=== PATIENT | female | born 1940 | race Asian ===

== ENCOUNTER 2019-02-24 00:50 | Inpatient (IN) | payer MEDICARE, OTHER ==
[~2019-02-24] VITALS: Ht 149.9 cm; Wt 66.3 kg
[2019-02-24] VITALS (9 sets, daily range): BP systolic 122–216; BP diastolic 50–93
--- NOTE | 2019-02-24 01:00 | NUR ---
Patient bib pvt ambulance from [facility] for c/o n/v. A/Ox3. Speech is clear, speaks in complete sentences. No acute neuro deficits. Respiratory even and unlabored with no cough or sob at this time. No cardiovascular distress noted, all pulses palpable denies any cp. Patient in bed at lowest position, sr upx2, call light within reach. Fall precautions implemented per protocol.
[2019-02-24 01:14] LABS: BASOPHILS % (AUTO) 0.4 % (0.0-2.0); EOSINOPHILS # (AUTO) 0.1 K/uL (0.0-0.7); LYMPHOCYTES # (AUTO) 0.9 K/uL (20.0-40.0); MEAN CORPUSCULAR VOLUME 88.5 fL (75.5-95.3); MONOCYTES # (AUTO) 0.8 K/uL (2.0-10.0)
[2019-02-24 01:15] LABS: EOSINOPHILS % (AUTO) 1.5 % (0.0-7.0); HEMATOCRIT 21.9 % (31.2-41.9); LYMPHOCYTES % (AUTO) 10.3 % (20.5-51.5); MEAN CORPUSCULAR HEMOGLOBIN 29.1 uug (24.7-32.8); MEAN CORPUSCULAR HGB CONC 33 g/dL (32.3-35.6); MONOCYTES % (AUTO) 9.3 % (0.0-11.0); NEUTROPHILS # (AUTO) 6.8 K/uL (1.8-8.9); NEUTROPHILS % (AUTO) 78.5 % (38.5-71.5); PLATELET COUNT (AUTO) 467 K/uL (179-408); WHITE BLOOD COUNT (AUTO) 8.7 K/uL (3.8-11.8)
[2019-02-24] MEDS ORDERED: IV NORMAL SALINE 1000 ML BAG IV ONE (01:15)
[2019-02-24] MEDS ORDERED: ONDANSETRON 4 MG/2 ML VIAL IV ONE (01:15)
[2019-02-24] MEDS ORDERED: ONDANSETRON 4 MG/2 ML VIAL ONE (01:18)
[2019-02-24] MEDS ORDERED: HYDR100T27 PO (01:24)
[2019-02-24] MEDS ORDERED: ACET-2154 PO (01:24)
[2019-02-24] MEDS ORDERED: INSU100V7 SQ (01:24)
[2019-02-24] MEDS ORDERED: AMIO200T7 PO (01:24)
[2019-02-24] MEDS ORDERED: VOLTAREN GEL1% (01:24)
[2019-02-24] MEDS ORDERED: DOCU100T10 PO (01:24)
[2019-02-24] MEDS ORDERED: SENN-168 PO (01:24)
[2019-02-24] MEDS ORDERED: MULT1TAB11 PO (01:24)
[2019-02-24] MEDS ORDERED: BENZ1LOZ58 PO (01:24)
[2019-02-24] MEDS ORDERED: BACL10TA PO (01:24)
[2019-02-24] MEDS ORDERED: NA P133E RC (01:24)
[2019-02-24] MEDS ORDERED: ACET1TAB12 PO (01:24)
[2019-02-24] MEDS ORDERED: GUAI100S9 PO (01:24)
[2019-02-24] MEDS ORDERED: ONDA4TAB8 PO (01:24)
[2019-02-24] MEDS ORDERED: FLUO15CR TP (01:24)
[2019-02-24] MEDS ORDERED: NIFE60TA9 PO (01:24)
[2019-02-24] MEDS ORDERED: APIX2.5T PO (01:24)
[2019-02-24] MEDS ORDERED: MAGN400T8 PO (01:24)
[2019-02-24] MEDS ORDERED: ESCI5TAB10 PO (01:24)
[2019-02-24] MEDS ORDERED: INSULIN SLIDING SCALE SQ (01:24)
[2019-02-24] MEDS ORDERED: GUAI-175 PO (01:24)
[2019-02-24] MEDS ORDERED: LIDOCAINE OINT 5% TOP (01:24)
[2019-02-24] MEDS ORDERED: CETI5TAB8 PO (01:24)
[2019-02-24] MEDS ORDERED: ASCO500C18 PO (01:24)
[2019-02-24] MEDS ORDERED: CYAN10009 PO (01:24)
[2019-02-24] MEDS ORDERED: PANT40TA2 PO (01:24)
[2019-02-24] MEDS ORDERED: ISOS30TA PO (01:24)
[2019-02-24] MEDS ORDERED: BISA10SU95 RC (01:24)
[2019-02-24] MEDS ORDERED: RISP1TAB7 PO (01:24)
[2019-02-24 01:32] LABS: ALANINE AMINOTRANSFERASE 16 U/L (14-59); ALKALINE PHOSPHATASE 70 U/L (50-136); ASPARTATE AMINOTRANSFERASE 12 U/L (15-37); BILIRUBIN,DIRECT 0.1 mg/dL (0.0-0.2); BILIRUBIN,TOTAL 0.2 mg/dL (0.2-1.0); CARBON DIOXIDE 19 mmol/L (21-32); CHLORIDE 108 mmol/L (98-107); CREATININE 3.2 mg/dL (0.6-1.3); GLUCOSE 184 mg/dL (74-106); LIPASE 250 U/L (73-393); POTASSIUM 6.1 mmol/L (3.5-5.1); TOTAL PROTEIN, SERUM 6.8 g/dL (6.4-8.2); UREA NITROGEN, BLOOD 61 mg/dL (7-18)
[2019-02-24 01:37] LABS: RED BLOOD CELL COUNT(AUTO) 2.47 MIL/uL (3.63-4.92)
[2019-02-24 01:40] LABS: HEMOGLOBIN 7.2 g/dL (10.9-14.3)
[2019-02-24] MEDS ORDERED: SODIUM POLYSTYRENE SULFONATE 15 G/60 ML LIQUID UDC PO ONE (01:45)
[2019-02-24] MEDS ORDERED: SODIUM POLYSTYRENE SULFONATE 15 G/60 ML LIQUID UDC ONE (01:47)
--- NOTE | 2019-02-24 01:47 | NUR ---
Patient back in room from CT in stable condition.
--- NOTE | 2019-02-24 02:14 | NUR ---
ERMD on the line with Dr. Edward Nick
[2019-02-24] MEDS ORDERED: LEVOFLOXACIN 750 MG/D5W 150 ML PIGGYBACK IV ONE (02:15)
[2019-02-24] MEDS ORDERED: AZITHROMYCIN IV 500 MG in IV DEXTROSE 5% 250 ML IV ONE (02:15)
[2019-02-24] MEDS ORDERED: LEVOFLOXACIN 750MG/D5W 150 ML IV ONE (02:21)
[2019-02-24] MEDS ORDERED: AZITHROMYCIN 500MG/ D5W 250ML IVPB **ER PYXIS ONLY IV ONE (02:22)
[2019-02-24] MEDS ORDERED: ALBUTEROL SULFATE 2.5 MG/3 ML NEBU NEB ONE (03:15)
[2019-02-24] MEDS ORDERED: ALBUTEROL SULFATE 2.5 MG/3 ML NEBU ONE (03:15)
[2019-02-24] MEDS ORDERED: IPRATROPIUM BROMIDE 0.5 MG/2.5 ML NEBU NEB ONE (03:15)
[2019-02-24] MEDS ORDERED: IPRATROPIUM BROMIDE 0.5 MG/2.5 ML NEBU ONE (03:15)
[2019-02-24] MEDS ORDERED: BENZOCAINE/MENTH/CETYLPYRD LOZENGE MM PRN ×2 (05:00→08:15)
[2019-02-24] MEDS ORDERED: GUAIFENESIN/DEXTROMETHORPHAN 5 ML UDC PO PRN (05:00)
[2019-02-24] MEDS ORDERED: BISACODYL 10 MG SUPP.RECT RC ONE (05:00)
[2019-02-24 05:18] LABS: *BILIRUBIN,URIN NEGATIVE (NEGATIVE); *BLOOD, URINE NEGATIVE (NEGATIVE); *COLOR,URINE YELLOW (YELLOW); *KETONES,URINE NEGATIVE (NEGATIVE); *UROBILINOGEN,URINE 0.2 E.U./dl (NORMAL); LEUKOCYTE ESTERASE ,URINE NEGATIVE (NEGATIVE); NITRITE, URINE NEGATIVE (NEGATIVE); UGLUCOSE NEGATIVE (NEGATIVE)
[2019-02-24 05:35] LABS: *CLARITY,URINE HAZY (CLEAR)
[2019-02-24 05:49] LABS: BACTERIA,URINE MANY /HPF (NONE SEEN)
[2019-02-24 05:50] LABS: SQUAMOUS EPITHELIAL CELL,UR FEW /HPF (NONE SEEN)
[2019-02-24] MEDS ORDERED: hydrALAZINE HCL 50 MG TABLET PO SCH (06:00)
--- NOTE | 2019-02-24 07:30 | NUR ---
RECIEVED PT LYING IN BED, AWAKE, ALERT AND ORIENTEDX3. SPEECH IS CLEAR. HR-SR, SB, NO ECTOPY. DENIES ANY CHEST PAINS. PT C/O SEVERE NAUSEA , AND HAD A LITTLE EMISIS NOTED ON THE BASIN AND MOUTH. DENIES OF ANY ABDOMENAL PAIN. AFEBRILE.
[2019-02-24] MEDS: PANTOPRAZOLE SODIUM 40 MG TABLET.DR PO SCH (07:50)
[2019-02-24] MEDS: AMIODARONE HCL 200 MG TABLET PO SCH ×3 (07:51→21:25)
[2019-02-24] MEDS ORDERED: NIFEdipine 10 MG CAPSULE PO SCH (08:00)
[2019-02-24] MEDS ORDERED: ACETAMINOPHEN/CODEINE 300-30 MG TABLET PO PRN (08:15)
[2019-02-24] MEDS ORDERED: GUAIFENESIN SUGAR FREE 100 MG/5 ML UDC PO SCH (08:15)
[2019-02-24] MEDS ORDERED: MISCELLANEOUS MED XX PRN ×2 (08:15)
[2019-02-24] MEDS ORDERED: BISACODYL 10 MG SUPP.RECT RC PRN (08:15)
[2019-02-24] MEDS ORDERED: ACETAMINOPHEN 325 MG TABLET PO SCH (08:15)
[2019-02-24] MEDS ORDERED: ONDANSETRON ODT 4 MG TAB.RAPDIS SL PRN (08:15)
[2019-02-24] MEDS ORDERED: NIFE90TA61 PO (08:29)
--- NOTE | 2019-02-24 08:30 | NUR ---
SEEN AND EXAMINED BY DR CURTIS WITH NEW ORDERS. PT MEDICATED WITH ZOFRAN 4MG SLOW IVP ON THE RT AC G18. PT ABLE TO FALL ASLEEP. KEPT NPO FOR NOR NOW TO REST THE STOMACH. IS AWARE.
[2019-02-24] MEDS: CYANOCOBALAMIN 1,000 MCG TABLET PO SCH (09:00)
[2019-02-24] MEDS ORDERED: BACLOFEN 10 MG TABLET PO SCH (09:00)
[2019-02-24] MEDS: ISOSORBIDE MONONITRATE 30 MG TAB.SR.24H PO SCH (09:00)
[2019-02-24] MEDS: CETIRIZINE HCL 10 MG TABLET PO SCH (09:00)
[2019-02-24] MEDS: MULTIVIT, IRON, MIN NO. 8, FA TABLET PO SCH (09:00)
[2019-02-24] MEDS: APIXABAN 5 MG TABLET PO SCH ×2 (09:00→17:29)
[2019-02-24] MEDS ORDERED: risperiDONE 1 MG TABLET PO SCH ×2 (09:00→21:00)
[2019-02-24] MEDS ORDERED: NIFEdipine XL 60 MG TABSR PO SCH (09:00)
[2019-02-24] MEDS: DOCUSATE SODIUM 100 MG/10 ML LIQUID UDC PO SCH ×2 (09:00→17:24)
[2019-02-24] MEDS ORDERED: MULTIVIT, IRON, MIN NO. 8, FA TABLET PO SCH (09:00)
[2019-02-24] MEDS ORDERED: PANTOPRAZOLE SODIUM 40 MG TABLET.DR PO SCH (09:00)
[2019-02-24] MEDS ORDERED: FLEET ENEMA 133 ML BOTTLE RC PRN (09:00)
[2019-02-24] MEDS ORDERED: MAGNESIUM OXIDE 400 MG TABLET PO SCH ×2 (09:00→21:00)
[2019-02-24] MEDS: ASCORBIC ACID 500 MG TABLET PO SCH (09:00)
[2019-02-24] MEDS ORDERED: APIXABAN 5 MG TABLET PO SCH (09:00)
[2019-02-24] MEDS ORDERED: AMIODARONE HCL 200 MG TABLET PO SCH (09:00)
[2019-02-24] MEDS ORDERED: ISOSORBIDE MONONITRATE 30 MG TAB.SR.24H PO SCH (09:00)
[2019-02-24] MEDS: NIFEdipine XL 90 MG TABSR PO SCH (09:00)
[2019-02-24] MEDS ORDERED: GUAIFENESIN/DEXTROMETHORPHAN TAB.SR.12H PO SCH (09:00)
[2019-02-24] MEDS: GUAIFENESIN LA 600 MG TABLET.SA PO SCH ×2 (09:00→20:45)
[2019-02-24] MEDS: ESCITALOPRAM OXALATE 10 MG TABLET NG SCH (09:00)
[2019-02-24] MEDS ORDERED: DEXTROSE 50% 50 ML DISP.SYRIN IV PRN (09:15)
[2019-02-24] MEDS: ONDANSETRON 4 MG/2 ML VIAL IV PRN ×2 (09:23→17:24)
--- NOTE | 2019-02-24 09:30 | NUR ---
PT STILL NAUSEOUS, UNABLE TO TAKE ORAL MEDICATIONS. MD IS AWARE.
--- NOTE | 2019-02-24 09:30 | NUR ---
PT IS INCONTINENT OF URINE AND VERY SMALL LIQUIDE BROWN STOOLS. CLEANED UP AND PLACED ON DIAPERS.
[2019-02-24] MEDS: LIDOCAINE 5% OINT 35.44 GM TUBE TOP SCH ×3 (09:53→17:30)
[2019-02-24] MEDS: FLUOCINONIDE 0.05% CREAM 30 GM TUBE TP SCH ×2 (09:54→17:30)
[2019-02-24] MEDS ORDERED: MEROPENEM 0.5 G in IV NORMAL SALINE 50 ML IV SCH (10:45)
[2019-02-24] MEDS ORDERED: EPOETIN ALFA 10,000 UNITS/ML VIAL SQ ONE (11:00)
[2019-02-24] MEDS: MEROPENEM 0.5 G in IV NORMAL SALINE 50 ML IV SCH (11:44)
[2019-02-24] MEDS: IV NS 1000 ML 1,000 ML IV PRN (11:49)
--- NOTE | 2019-02-24 12:00 | NUR ---
MIDLINE INSERTION DONE AT THE BEDSIDE ON THE RIGHT CEPHALIC VEIN BY THE PICC LINE RN.
--- NOTE | 2019-02-24 12:30 | NUR ---
ATE VERY LITTLE. SWALLOW EVAL DONE AT BEDSIDE BY SPEECH THERAPIST. PT STILL NAUSEOUS. RECOMMENDED A VIDEO SWALLOW STUDY.
[2019-02-24] MEDS: BLOOD SUGAR DIAGNOSTIC 1 EACH STRIP VI SCH ×3 (12:49→20:56)
[2019-02-24] MEDS: INSULIN REGULAR, HUMAN 300 UNIT/3 ML VIAL SQ PRN ×2 (12:52→16:45)
[2019-02-24 13:50] LABS: IRON, SERUM 21 ug/dL (50-175)
--- NOTE | 2019-02-24 14:30 | NUR ---
PT IS SLEEPING INTERMITTENTLY. REPOSITION FROM SIDE TO SIDE.
[2019-02-24] MEDS ORDERED: Z GUARD REMEDY PASTE 57 GM TUBE TOP PRN (16:00)
--- NOTE | 2019-02-24 17:30 | NUR ---
PM CARE AND BED BATH DONE. FIRST STEP MATTRESS APPLIED FOR SKIN INTEGRITY. PT IS FEELING NAUSEOUS. MEDICATED WITH ZOFRAN 4MG SLOW IVP. ALSO MEDICATED WITH HYDRALAZINE FOR HIGH BP OF 203 SYSTOLIC. NO C/O TORRES.
[2019-02-24] MEDS: hydrALAZINE HCL 50 MG TABLET PO PRN (17:38)
--- NOTE | 2019-02-24 18:45 | NUR ---
PT'S BP PERSISTENTLY UP TO 200SYSTOLIC, NOTIFIED DR CURTIS WITH NEW ORDER OF NITROBID PRN ABOVE 160S.
--- NOTE | 2019-02-24 19:20 | NUR ---
AWAITING FOR THE MEDICATION.
--- NOTE | 2019-02-24 19:30 | NUR ---
rounds made patient in bed awake alert ,able to verbalized needs , patient denies pain at this time . call light palced with in reach . tolerating 02 at 3 l/min .
[2019-02-24] MEDS: IPRATROPIUM BROMIDE 0.5 MG/2.5 ML NEBU NEB PRN (19:47)
[2019-02-24] MEDS: ALBUTEROL SULFATE 2.5 MG/3 ML NEBU NEB PRN (19:47)
--- NOTE | 2019-02-24 19:47 | NUR ---
respiratory therapist at bedside ,giving patient breathing treatment .
[2019-02-24] MEDS: NITROGLYCERIN OINT 1 GM PACKET TP PRN (19:53)
--- NOTE | 2019-02-24 19:53 | NUR ---
NTG paste given 1 gm to the left upper chest ,bp 207/80 hr 80, will continue to monitor v/s.
[2019-02-24] MEDS: SENNOSIDES 1 TABLET PO SCH (20:45)
[2019-02-24] MEDS: ESCITALOPRAM OXALATE 10 MG TABLET PO SCH (20:46)
[2019-02-24] MEDS: MECLIZINE HCL 12.5 MG TABLET PO PRN (20:49)
--- NOTE | 2019-02-24 20:49 | NUR ---
patient verbalized she is dizzy , given prn Antivert po , tolerated medication with sips of cranberry .
[2019-02-24] MEDS: BACLOFEN 10 MG TABLET PO SCH (20:54)
[2019-02-24] MEDS: INSULIN GLARGINE,HUM 300 UNITS/3 ML CARTRIDGE SQ SCH (20:57)
--- NOTE | 2019-02-24 20:57 | NUR ---
fingerstick done result is 168 given insulin /Lantus . see emar .
[2019-02-24] MEDS ORDERED: DOCUSATE SODIUM 100 MG CAPSULE PO SCH (21:00)
--- NOTE | 2019-02-24 21:00 | NUR ---
changed soiled linens and gown . incontinent of urine .turned and reposition . hob up .
--- NOTE | 2019-02-24 21:15 | NUR ---
due medication given tolerated with sips od cranberry juice . aspiration precaution observed given medication 1 at a time.pateint tolerated medication .
--- NOTE | 2019-02-24 21:30 | NUR ---
CALLED DR: KIRSTEN Mayes/Alexx PATIENT BP 203/83 (134).
[2019-02-24] MEDS ORDERED: MECL-182 PO (22:03)
--- NOTE | 2019-02-24 22:09 | NUR ---
called [facility] again c/o patient bp 203/83 hr 84 ,[facility] will dispatch the call .patient at this time in bed sleeping .
--- NOTE | 2019-02-24 23:00 | NUR ---
KALEE CHUN CALLED back and dictated patient bp . this time 23:00 bp is 157/60 mm/hg . no new orders made.
[2019-02-25] VITALS (7 sets, daily range): BP systolic 133–157; BP diastolic 49–67
[2019-02-25] MEDS: IV NS 1000 ML 1,000 ML IV PRN ×2 (00:54→15:18)
[2019-02-25 05:05] LABS: EOSINOPHILS # (AUTO) 0.1 K/uL (0.0-0.7); EOSINOPHILS % (AUTO) 1.7 % (0.0-7.0); NEUTROPHILS # (AUTO) 6.4 K/uL (1.8-8.9); NEUTROPHILS % (AUTO) 78.1 % (38.5-71.5)
[2019-02-25 05:07] LABS: BASOPHILS % (AUTO) 0.6 % (0.0-2.0); HEMATOCRIT 21.2 % (31.2-41.9); LYMPHOCYTES # (AUTO) 0.8 K/uL (20.0-40.0); LYMPHOCYTES % (AUTO) 10.2 % (20.5-51.5); MEAN CORPUSCULAR HEMOGLOBIN 29.3 uug (24.7-32.8); MEAN CORPUSCULAR HGB CONC 33 g/dL (32.3-35.6); MEAN CORPUSCULAR VOLUME 88.5 fL (75.5-95.3); MONOCYTES # (AUTO) 0.8 K/uL (2.0-10.0); MONOCYTES % (AUTO) 9.4 % (0.0-11.0); PLATELET COUNT (AUTO) 455 K/uL (179-408); WHITE BLOOD COUNT (AUTO) 8.3 K/uL (3.8-11.8)
[2019-02-25 05:10] LABS: RED BLOOD CELL COUNT(AUTO) 2.39 MIL/uL (3.63-4.92)
[2019-02-25 05:11] LABS: CARBON DIOXIDE 18 mmol/L (21-32); CHLORIDE 108 mmol/L (98-107); CREATININE 2.7 mg/dL (0.6-1.3); GLUCOSE 99 mg/dL (74-106); MAGNESIUM 2.4 mg/dL (1.8-2.4); PHOSPHOROUS 4.1 mg/dL (2.5-4.9); POTASSIUM 4.5 mmol/L (3.5-5.1); UREA NITROGEN, BLOOD 54 mg/dL (7-18)
[2019-02-25] MEDS: AMIODARONE HCL 200 MG TABLET PO SCH ×3 (05:45→22:04)
--- NOTE | 2019-02-25 06:00 | NUR ---
sleep most of the night . no s/s of pain . due medication given and tolerated with cranberry juice . hob up aspiration precaution observed ,changed soiled linens incontinent of urine changed soiled diaper .
[2019-02-25] MEDS: PANTOPRAZOLE SODIUM 40 MG TABLET.DR PO SCH (06:11)
[2019-02-25] MEDS: BLOOD SUGAR DIAGNOSTIC 1 EACH STRIP VI SCH ×4 (07:30→21:05)
[2019-02-25] MEDS: CYANOCOBALAMIN 1,000 MCG TABLET PO SCH (08:14)
[2019-02-25] MEDS: ASCORBIC ACID 500 MG TABLET PO SCH (08:15)
[2019-02-25] MEDS: DOCUSATE SODIUM 100 MG/10 ML LIQUID UDC PO SCH ×2 (08:15→17:08)
[2019-02-25] MEDS: CETIRIZINE HCL 10 MG TABLET PO SCH (08:15)
[2019-02-25] MEDS: GUAIFENESIN LA 600 MG TABLET.SA PO SCH ×2 (08:15→20:55)
[2019-02-25] MEDS: MULTIVIT, IRON, MIN NO. 8, FA TABLET PO SCH (08:16)
[2019-02-25] MEDS: LIDOCAINE 5% OINT 35.44 GM TUBE TOP SCH ×3 (08:17→17:12)
[2019-02-25] MEDS: FLUOCINONIDE 0.05% CREAM 30 GM TUBE TP SCH ×2 (08:17→17:13)
[2019-02-25] MEDS: ESCITALOPRAM OXALATE 10 MG TABLET NG SCH (08:21)
[2019-02-25] MEDS: APIXABAN 5 MG TABLET PO SCH ×2 (08:24→17:09)
[2019-02-25] MEDS: ONDANSETRON 4 MG/2 ML VIAL IV PRN (08:33)
[2019-02-25] MEDS: NITROGLYCERIN OINT 1 GM PACKET TP PRN (08:49)
[2019-02-25] MEDS: NIFEdipine XL 90 MG TABSR PO SCH (08:53)
[2019-02-25] MEDS: ISOSORBIDE MONONITRATE 30 MG TAB.SR.24H PO SCH (08:53)
--- NOTE | 2019-02-25 10:32 | NUR ---
Pt left the floor for video swallow with radiologist and speech therapist. Pt stable and nad noted upon leaving the unit.
--- NOTE | 2019-02-25 10:47 | NUR ---
Pt returned to the unit from video swallow. Pt stable and nad noted upon returning to the unit.
[2019-02-25] MEDS: MEROPENEM 0.5 G in IV NORMAL SALINE 50 ML IV SCH (11:06)
[2019-02-25] MEDS: INSULIN REGULAR, HUMAN 300 UNIT/3 ML VIAL SQ PRN ×2 (11:10→21:06)
[2019-02-25] MEDS: IPRATROPIUM BROMIDE 0.5 MG/2.5 ML NEBU NEB PRN ×2 (15:07→19:18)
[2019-02-25] MEDS: ALBUTEROL SULFATE 2.5 MG/3 ML NEBU NEB PRN ×2 (15:07→19:18)
--- NOTE | 2019-02-25 19:30 | NUR ---
in bed when round made ,tolerating 02 nasal cannula at 3 l/min . saturation 98% rr 18.patient denies pain when asked .incontinent of urine changed soiled linens and gown applied z guard to sacral area patient able to help in turning and repositioning .turned to the right side off loaded back with pillows .
[2019-02-25] MEDS ORDERED: BARIUM SULFATE 240 ML ORAL.SUSP PO ONE (19:38)
[2019-02-25] MEDS ORDERED: BARIUM SULFATE 148 GM SUSP.RECON PO ONE (19:38)
[2019-02-25] MEDS: SENNOSIDES 1 TABLET PO SCH (20:56)
[2019-02-25] MEDS: ESCITALOPRAM OXALATE 10 MG TABLET PO SCH (20:56)
[2019-02-25] MEDS: risperiDONE 0.5 MG TABLET PO SCH (20:58)
[2019-02-25] MEDS: BACLOFEN 10 MG TABLET PO SCH (20:58)
[2019-02-25] MEDS: MECLIZINE HCL 12.5 MG TABLET PO PRN (20:58)
[2019-02-25] MEDS: INSULIN GLARGINE,HUM 300 UNITS/3 ML CARTRIDGE SQ SCH (21:04)
[2019-02-26] VITALS (9 sets, daily range): BP systolic 115–174; BP diastolic 38–75
--- NOTE | 2019-02-26 02:50 | NUR ---
sleeping in bed no s/s of pain or discomfort .no respiratory distress call light placed within in reach .
[2019-02-26] MEDS: IV NS 1000 ML 1,000 ML IV PRN (03:13)
[2019-02-26] MEDS: AMIODARONE HCL 200 MG TABLET PO SCH ×2 (05:09→17:47)
[2019-02-26 05:22] LABS: EOSINOPHILS # (AUTO) 0.3 K/uL (0.0-0.7); LYMPHOCYTES # (AUTO) 0.8 K/uL (20.0-40.0); MEAN CORPUSCULAR HGB CONC 33 g/dL (32.3-35.6); MONOCYTES # (AUTO) 0.8 K/uL (2.0-10.0); NEUTROPHILS # (AUTO) 7.5 K/uL (1.8-8.9); WHITE BLOOD COUNT (AUTO) 9.5 K/uL (3.8-11.8)
[2019-02-26 05:24] LABS: BASOPHILS # (AUTO) 0.1 K/uL (0.0-8.0); BASOPHILS % (AUTO) 0.6 % (0.0-2.0); EOSINOPHILS % (AUTO) 3.4 % (0.0-7.0); LYMPHOCYTES % (AUTO) 8.5 % (20.5-51.5); MEAN CORPUSCULAR HEMOGLOBIN 29.3 uug (24.7-32.8); MEAN CORPUSCULAR VOLUME 88.6 fL (75.5-95.3); MONOCYTES % (AUTO) 8.4 % (0.0-11.0); NEUTROPHILS % (AUTO) 79.1 % (38.5-71.5); PLATELET COUNT (AUTO) 444 K/uL (179-408)
[2019-02-26 05:27] LABS: ALANINE AMINOTRANSFERASE 24 U/L (14-59); ALKALINE PHOSPHATASE 77 U/L (50-136); ASPARTATE AMINOTRANSFERASE 15 U/L (15-37); BILIRUBIN,TOTAL 0.2 mg/dL (0.2-1.0); CARBON DIOXIDE 17 mmol/L (21-32); CHLORIDE 110 mmol/L (98-107); CREATININE 2.9 mg/dL (0.6-1.3); GLUCOSE 132 mg/dL (74-106); MAGNESIUM 1.9 mg/dL (1.8-2.4); PHOSPHOROUS 3.9 mg/dL (2.5-4.9); POTASSIUM 4.3 mmol/L (3.5-5.1); UREA NITROGEN, BLOOD 54 mg/dL (7-18)
--- NOTE | 2019-02-26 05:45 | NUR ---
am care done bath patient incontinent of urine , zguard applied to perineal and sacral area .able to help in turning . changed soiled linens and gown . turned and reposition . hob up ,scds used to bilateral leg elevated legs with pillow heels off bed .
[2019-02-26 05:49] LABS: HEMATOCRIT 20.2 % (31.2-41.9); RED BLOOD CELL COUNT(AUTO) 2.28 MIL/uL (3.63-4.92)
[2019-02-26 05:50] LABS: HEMOGLOBIN 6.7 g/dL (10.9-14.3)
[2019-02-26 06:03] LABS: EOSINOPHILS % (MANUAL) 4 % (0-8); LYMPHOCYTES % (MANUAL) 11 % (20-40); MONOCYTES % (MANUAL) 10 % (2-10); NEUTROPHILS % (MANUAL) 75 % (42-75)
[2019-02-26] MEDS: PANTOPRAZOLE SODIUM 40 MG TABLET.DR PO SCH (06:03)
[2019-02-26] MEDS: ALBUTEROL SULFATE 2.5 MG/3 ML NEBU NEB PRN ×2 (06:10→19:14)
[2019-02-26] MEDS: IPRATROPIUM BROMIDE 0.5 MG/2.5 ML NEBU NEB PRN ×2 (06:10→19:14)
--- NOTE | 2019-02-26 06:12 | NUR ---
called respiratory therapist patient noted to be wheezing . sob upon exertion saturation 100%b rr 18. respiratory therapist came and gave patient breathing treatment .
--- NOTE | 2019-02-26 06:16 | NUR ---
due medication given tolerated with cranberry juice ,aspiration precaution observed and hob up .
--- NOTE | 2019-02-26 07:30 | NUR ---
RECIEVED PT LYING IN BED ASLEEP WITH HOB UP 35DEGREES. AROUSABLE TO CALL. ORIENTEDX3, SPEECH IS CLEAR. DENIES ANY CP, NO DIZZINESS, AND NO N/V. COLOR IS SLIGHTLY PALE. AWAITING FOR MD RETURN CALL REGARDING PT'S LOW H/H. MAIN IVF IS INFUSING WELL VIA MIDLINE ACCESS JOYCE. NO APPARENT SOB NOTED. O2 SAT 100% ON 3LNC.
--- NOTE | 2019-02-26 08:30 | NUR ---
PT ATE GOOD BREAKFAST WITH MAX ASSIST. SWALLOWING GOOD.
[2019-02-26] MEDS: BLOOD SUGAR DIAGNOSTIC 1 EACH STRIP VI SCH ×4 (09:00→20:43)
[2019-02-26] MEDS: APIXABAN 5 MG TABLET PO SCH ×3 (09:00→18:16)
--- NOTE | 2019-02-26 09:00 | NUR ---
ELIQUIS NOT GIVEN BECAUSE H&H IS LOW. DR THOMSON AWARE.
[2019-02-26] MEDS: DOCUSATE SODIUM 100 MG/10 ML LIQUID UDC PO SCH ×2 (09:03→17:46)
[2019-02-26] MEDS: ASCORBIC ACID 500 MG TABLET PO SCH (09:03)
[2019-02-26] MEDS: GUAIFENESIN LA 600 MG TABLET.SA PO SCH ×2 (09:03→20:23)
[2019-02-26] MEDS: ESCITALOPRAM OXALATE 10 MG TABLET NG SCH (09:03)
[2019-02-26] MEDS: CETIRIZINE HCL 10 MG TABLET PO SCH (09:04)
[2019-02-26] MEDS: NIFEdipine XL 90 MG TABSR PO SCH (09:05)
[2019-02-26] MEDS: MULTIVIT, IRON, MIN NO. 8, FA TABLET PO SCH (09:05)
[2019-02-26] MEDS: LIDOCAINE 5% OINT 35.44 GM TUBE TOP SCH ×3 (09:05→17:47)
[2019-02-26] MEDS: ISOSORBIDE MONONITRATE 30 MG TAB.SR.24H PO SCH (09:06)
[2019-02-26] MEDS: CYANOCOBALAMIN 1,000 MCG TABLET PO SCH (09:06)
[2019-02-26] MEDS: FLUOCINONIDE 0.05% CREAM 30 GM TUBE TP SCH ×2 (09:08→17:47)
--- NOTE | 2019-02-26 10:00 | NUR ---
PT IS INCONTINENT OF URINE AND SHE IS ON DIAPERS.
[2019-02-26] MEDS ORDERED: FUROSEMIDE 40 MG/4 ML VIAL IV ONE (11:45)
[2019-02-26] MEDS: MEROPENEM 0.5 G in IV NORMAL SALINE 50 ML IV SCH (11:46)
--- NOTE | 2019-02-26 12:00 | NUR ---
SEEN AND EXAMINED BY DR CAZARES WITH NEW ORDERS. MAIN IVF IS DCD ORDERED.
--- NOTE | 2019-02-26 13:58 | NUR ---
Follow-up call to [facility] regarding low H/H. Pending call back.
--- NOTE | 2019-02-26 14:00 | NUR ---
2DECHO DONE AT THE BEDSIDE. AWAITING FOR RESULT.
--- NOTE | 2019-02-26 16:30 | NUR ---
SEEN AND EXAMINED BY DR THOMSON WITH NEW ORDERS.
[2019-02-26] MEDS ORDERED: BUMETANIDE INJ 3 MG in IV DEXTROSE 5% 38 ML IV ONE (17:30)
--- NOTE | 2019-02-26 17:40 | NUR ---
CONSENT FOR BLOOD TRANSFUSION SIGNED BY THE DAUGHTER. AWAITING FOR THE BLOOD UNIT.
--- NOTE | 2019-02-26 19:14 | NUR ---
respiratory therapist at bedside giving patient breathing treatment .hob up .
--- NOTE | 2019-02-26 19:45 | NUR ---
CALLED BLOOD BANK INQUIRING IF THE 1 UNIT OF [facility] IS AVAILABLE SPOKED WITH ETTA ,HE SAID THE PATIENT NEEDS A SECOND TYPE AND SCREEN AND NOT IS NOT READY YET . ADVISED TO CALL IF BLOOD I AVAILABLE .
--- NOTE | 2019-02-26 20:00 | NUR ---
patient in bed awake and alert ,able to verbalized needs , tolerating 02 nasal cannula at 3 l min saturation 100% rr 19.sob noted upon exertion and expiratory wheezing noted ,patient able to help in turning ,turned and reposition patient .
[2019-02-26] MEDS: ONDANSETRON 4 MG/2 ML VIAL IV PRN (20:03)
[2019-02-26] MEDS: SENNOSIDES 1 TABLET PO SCH (20:23)
[2019-02-26] MEDS: risperiDONE 0.5 MG TABLET PO SCH (20:23)
[2019-02-26] MEDS: BACLOFEN 10 MG TABLET PO SCH (20:23)
[2019-02-26] MEDS: ESCITALOPRAM OXALATE 10 MG TABLET PO SCH (20:23)
[2019-02-26] MEDS: MECLIZINE HCL 12.5 MG TABLET PO PRN (20:23)
--- NOTE | 2019-02-26 20:23 | NUR ---
due medication given and tolerated with cranberry juice . hob up and aspiration precaution observed .
[2019-02-26] MEDS: INSULIN GLARGINE,HUM 300 UNITS/3 ML CARTRIDGE SQ SCH (20:38)
--- NOTE | 2019-02-26 21:30 | NUR ---
report given to daniel RAMOS IN TELEMETRY 3RD FLOOR . patient going to room 310. went via bed and with chart, medication and belongings .
--- NOTE | 2019-02-26 21:40 | NUR ---
PATIENT RECEIVED FROM CCU UNIT, NO SOB NO CHEST PAIN, ALERT VERBALLY RESPONSIVE, NO COMPLAIN OF PAIN, KEPT COMFORTABLE. V/S STABLE.
--- NOTE | 2019-02-26 23:35 | NUR ---
2306 STARTED BLOOD TRANSFUSION, NO ADVERSE REACTION NOTED, V/S STABLE. CONT TO MONITOR. 2317 PATIENT ALERT ORIENTED, NO SOB NO CHEST PAIN, NO ADVERSE REACTION NOTED ON ONGOING BLOOD TRANSFUSION, CONT TO MONITOR.
[2019-02-27] VITALS (9 sets, daily range): BP systolic 133–179; BP diastolic 44–66
[2019-02-27] MEDS: hydrALAZINE HCL 50 MG TABLET PO PRN (00:46)
--- NOTE | 2019-02-27 01:51 | NUR ---
TRANSFUSED 1 UNIT PRBC TOLERATE WELL, NO ADVERSE REACTION NOTED. PATIENT BP SLIGHTLY ELEVATED, GIVEN PRN MEDICATIONS WILL CONT TO MONITOR.
[2019-02-27] MEDS: ACETAMINOPHEN 325 MG TABLET PO PRN (01:55)
[2019-02-27 06:28] LABS: BASOPHILS # (AUTO) 0.1 K/uL (0.0-8.0); BASOPHILS % (AUTO) 0.5 % (0.0-2.0); EOSINOPHILS # (AUTO) 0.6 K/uL (0.0-0.7); EOSINOPHILS % (AUTO) 5.2 % (0.0-7.0); HEMATOCRIT 22.9 % (31.2-41.9); LYMPHOCYTES # (AUTO) 1.2 K/uL (20.0-40.0); LYMPHOCYTES % (AUTO) 11.4 % (20.5-51.5); MEAN CORPUSCULAR HEMOGLOBIN 30.2 uug (24.7-32.8); MEAN CORPUSCULAR HGB CONC 35 g/dL (32.3-35.6); MEAN CORPUSCULAR VOLUME 87.1 fL (75.5-95.3); MONOCYTES # (AUTO) 1.2 K/uL (2.0-10.0); MONOCYTES % (AUTO) 11.7 % (0.0-11.0); NEUTROPHILS # (AUTO) 7.6 K/uL (1.8-8.9); NEUTROPHILS % (AUTO) 71.2 % (38.5-71.5); PLATELET COUNT (AUTO) 425 K/uL (179-408); RED BLOOD CELL COUNT(AUTO) 2.63 MIL/uL (3.63-4.92); WHITE BLOOD COUNT (AUTO) 10.7 K/uL (3.8-11.8)
[2019-02-27] MEDS: PANTOPRAZOLE SODIUM 40 MG TABLET.DR PO SCH (06:48)
[2019-02-27] MEDS: BLOOD SUGAR DIAGNOSTIC 1 EACH STRIP VI SCH ×6 (06:50→21:30)
[2019-02-27 06:56] LABS: ALANINE AMINOTRANSFERASE 24 U/L (14-59); ALKALINE PHOSPHATASE 69 U/L (50-136); ASPARTATE AMINOTRANSFERASE 11 U/L (15-37); BILIRUBIN,TOTAL 0.7 mg/dL (0.2-1.0); CARBON DIOXIDE 19 mmol/L (21-32); CHLORIDE 106 mmol/L (98-107); CREATININE 2.9 mg/dL (0.6-1.3); MAGNESIUM 1.9 mg/dL (1.8-2.4); PHOSPHOROUS 4.2 mg/dL (2.5-4.9); POTASSIUM 4.2 mmol/L (3.5-5.1); TOTAL PROTEIN, SERUM 5.8 g/dL (6.4-8.2); UREA NITROGEN, BLOOD 54 mg/dL (7-18)
[2019-02-27 06:59] LABS: GLUCOSE 48 mg/dL (74-106)
--- NOTE | 2019-02-27 07:00 | NUR ---
PATIENT LAB REPORT, BS 48, NOTIFY DR MORTON SAID HE WILL ADJUST THE INSULIN. PATIENT ALERT VERBALLY RESPONSIVE ASYMPTOMATIC, GIVENN OJ BLOOD SUGAR IS UP TO 74 NOW. CONT TO MONITOR
--- NOTE | 2019-02-27 07:02 | NUR ---
PATIENT SLEPT MOST OF THE NIGHT NO SOB NO CHEST PAIN, PATIENT STILL A FIB, BP STABLE AT THIS TIME. CONT TO MONITOR.
--- NOTE | 2019-02-27 08:00 | NUR ---
RECEIVED PATIENT RESTING IN BED. PT ON TELEMETRY MONITORING WITH SINUS CLAIRE. PATIENT ON O2 VIA NC @ 2L/M . NO ACUTE DISTRESS NOTED. NO SOB NOTED. PT ALERT AND ORIENTED X3. BED LOCKED AND IN LOW POSITION. PT ON SPECIAL MATTRESS. WILL CONTINUE TO MONITOR FOR SAFETY AND COMFORT. Addendum: 02/27/19 at 1737 by KATIA CHENG RN POC BG DONE 74. NO ACTION NEEDED AT THIS TIME.
[2019-02-27] MEDS: CETIRIZINE HCL 10 MG TABLET PO SCH (08:42)
[2019-02-27] MEDS: ESCITALOPRAM OXALATE 10 MG TABLET NG SCH (08:43)
[2019-02-27] MEDS: NIFEdipine XL 90 MG TABSR PO SCH (08:43)
[2019-02-27] MEDS: GUAIFENESIN LA 600 MG TABLET.SA PO SCH ×2 (08:44→21:13)
[2019-02-27] MEDS: ISOSORBIDE MONONITRATE 30 MG TAB.SR.24H PO SCH (08:44)
[2019-02-27] MEDS: MULTIVIT, IRON, MIN NO. 8, FA TABLET PO SCH (08:44)
[2019-02-27] MEDS: ASCORBIC ACID 500 MG TABLET PO SCH (08:44)
[2019-02-27] MEDS: CYANOCOBALAMIN 1,000 MCG TABLET PO SCH (08:45)
[2019-02-27] MEDS: FUROSEMIDE 20 MG/2 ML VIAL IV SCH ×3 (08:48→21:13)
[2019-02-27] MEDS: AMIODARONE HCL 200 MG TABLET PO SCH ×2 (08:48→17:22)
[2019-02-27] MEDS: DOCUSATE SODIUM 100 MG/10 ML LIQUID UDC PO SCH ×2 (08:48→17:21)
[2019-02-27] MEDS: APIXABAN 5 MG TABLET PO SCH ×2 (08:50→17:22)
[2019-02-27] MEDS: LIDOCAINE 5% OINT 35.44 GM TUBE TOP SCH ×3 (08:52→17:23)
[2019-02-27] MEDS: FLUOCINONIDE 0.05% CREAM 30 GM TUBE TP SCH ×2 (08:53→17:23)
[2019-02-27] MEDS: MEROPENEM 0.5 G in IV NORMAL SALINE 50 ML IV SCH (11:06)
--- NOTE | 2019-02-27 12:00 | NUR ---
PT RESTING COMFORTABLY. PT TURNED AND REPOSITIONED Q2 HOURS. NO ACUTE DISTRESS OR SOB NOTED. PT IS DIET AND MEDICATION COMPLIANT. TELE SINUS RHYTHM. WILL CONTINUE TO MONITOR FOR SAFETY AND COMFORT.
--- NOTE | 2019-02-27 16:37 | NUR ---
POC BG DONE 67. ORANGE USE GIVEN. WILL REMEASURE.
--- NOTE | 2019-02-27 17:46 | NUR ---
POC DONE 80.
--- NOTE | 2019-02-27 17:49 | NUR ---
PT RESTING COMFORTABLY IN BED. NO ACUTE DISTRESS OR SOB NOTED. PT ON O2 @ 1L/M VIA NC SATURATING 96%. PT IS MEDICATION AND DIET COMPLIANT. PT ALERT AND ORIENTED X3. PLEASANT AND COOPERATIVE. FAMILY AT BEDSIDE. PT TURNED AND REPOSITIONED EVERY 2 HOURS. PT ON SPECIALTY AIR MATTRESS BED. WILL GIVE REPORT ACCORDINGLY.
--- NOTE | 2019-02-27 19:50 | NUR ---
PATIENT ALERT BUT FORGETFUL NO SOB NO CHEST PAIN, TELE MONITOR A FIB AT THIS TIME. PATIENT HAS NO COMPLAIN OF PAIN AT THIS TIME. PATIENT WAS TURNED AND REPOSITION, VOIDING WELL, KEPT CLEAN AND DRY. PATIENT TOLERATE ON 1LPM NC OXYGEN, NO S/S OF HYPO/HYPERGYLCEMIA NOTED, CONT TO MONITOR.
[2019-02-27] MEDS: ESCITALOPRAM OXALATE 10 MG TABLET PO SCH (21:12)
[2019-02-27] MEDS: SENNOSIDES 1 TABLET PO SCH (21:13)
[2019-02-27] MEDS: risperiDONE 0.5 MG TABLET PO SCH (21:13)
[2019-02-27] MEDS: BACLOFEN 10 MG TABLET PO SCH (21:13)
[2019-02-27] MEDS: INSULIN GLARGINE,HUM 300 UNITS/3 ML CARTRIDGE SQ SCH (21:35)
[2019-02-27] MEDS: IPRATROPIUM BROMIDE 0.5 MG/2.5 ML NEBU NEB PRN (21:48)
[2019-02-27] MEDS: ALBUTEROL SULFATE 2.5 MG/3 ML NEBU NEB PRN (21:48)
[2019-02-28] VITALS (7 sets, daily range): BP systolic 100–181; BP diastolic 39–91
[2019-02-28] MEDS: ACETAMINOPHEN 325 MG TABLET PO PRN ×2 (00:26→06:26)
--- NOTE | 2019-02-28 01:32 | NUR ---
REPORT GIVEN TO INCOMING RN SHAILA,
--- NOTE | 2019-02-28 01:33 | NUR ---
HANDS OFF REPORT GIVEN . PT IN NO ACUTE DISTRESS. SAFETY AND COMFORT PROVIDED. WILL CONTINUE TO MONITOR.
[2019-02-28] MEDS: hydrALAZINE HCL 50 MG TABLET PO PRN (02:33)
[2019-02-28] MEDS: FUROSEMIDE 20 MG/2 ML VIAL IV SCH ×3 (05:25→21:50)
[2019-02-28] MEDS: PANTOPRAZOLE SODIUM 40 MG TABLET.DR PO SCH (06:27)
[2019-02-28] MEDS: BLOOD SUGAR DIAGNOSTIC 1 EACH STRIP VI SCH ×5 (06:45→20:41)
--- NOTE | 2019-02-28 06:47 | NUR ---
PT SLEPT INTERMITTENTLY . PRESCRIBED MEDICATION GIVEN AND PT TOLERATED IT WELL. PT GIVEN APRESOLINE AT 0233H FOR BP 170/63. PT TOLERATED IT WELL. PT RECENT BP IS 164/63 AND PULSE 96.PT GIVEN LASIX. BLOOD SUGAR WAS 68 AND GAVE ORANGE JUICE BLOOD SUGAR NOW IS 87. PT IN NO ACUTE DISTRESS. AND WENT SAFETY AND COMFORT PROVIDED. ALL NEEDS ARE MET. WILL ENDORSE TO INCOMING NURSE FOR CONTINUITY OF CARE.
--- NOTE | 2019-02-28 07:54 | NUR ---
PATIENT RESTING COMFORTABLY IN BED AT THIS TIME. NO SIGNS OF DISTRESS. WILL MONITOR GLUCOSE LEVELS CLOSELY. CONTROLLED AFIB ON TELEMETRY. 1L O2 NC SATURATING WNL. BED IN LOCKED POSITION. SAFETY MEASURES IMPLEMENTED. WILL CONTINUE TO MONITOR CLOSELY THROUGHOUT SHIFT.
[2019-02-28] MEDS: DOCUSATE SODIUM 100 MG/10 ML LIQUID UDC PO SCH ×2 (08:03→17:15)
[2019-02-28] MEDS: CETIRIZINE HCL 10 MG TABLET PO SCH (08:07)
[2019-02-28] MEDS: ESCITALOPRAM OXALATE 10 MG TABLET NG SCH (08:07)
[2019-02-28] MEDS: AMIODARONE HCL 200 MG TABLET PO SCH ×2 (08:08→17:15)
[2019-02-28] MEDS: ASCORBIC ACID 500 MG TABLET PO SCH (08:08)
[2019-02-28] MEDS: CYANOCOBALAMIN 1,000 MCG TABLET PO SCH (08:08)
[2019-02-28] MEDS: GUAIFENESIN LA 600 MG TABLET.SA PO SCH ×2 (08:08→20:40)
[2019-02-28] MEDS: NIFEdipine XL 90 MG TABSR PO SCH (08:08)
[2019-02-28] MEDS: MULTIVIT, IRON, MIN NO. 8, FA TABLET PO SCH (08:08)
[2019-02-28] MEDS: ISOSORBIDE MONONITRATE 30 MG TAB.SR.24H PO SCH (08:10)
[2019-02-28] MEDS: APIXABAN 5 MG TABLET PO SCH ×2 (08:14→17:13)
[2019-02-28] MEDS: LIDOCAINE 5% OINT 35.44 GM TUBE TOP SCH ×3 (08:26→17:13)
[2019-02-28] MEDS: FLUOCINONIDE 0.05% CREAM 30 GM TUBE TP SCH ×2 (08:26→17:13)
[2019-02-28] MEDS: hydrALAZINE HCL 50 MG TABLET PO SCH ×3 (08:30→21:50)
[2019-02-28] MEDS: MEROPENEM 0.5 G in IV NORMAL SALINE 50 ML IV SCH (11:34)
[2019-02-28] MEDS: ONDANSETRON 4 MG/2 ML VIAL IV PRN (12:34)
--- NOTE | 2019-02-28 18:01 | NUR ---
PATIENT RESTING COMFORTABLY IN BED AT THIS TIME. NO SIGNS OF DISTRESS. CONTROLLED AFIB ON TELEMETRY. ON O2 1L SATURATING WNL AT THIS TIME. DENIES ANY PAIN OR SOB. PATIENT TENDS TO COUGH A LOT AFTER EATING - EDUCATED PATIENT ON IMPORTANCE OF EATING SLOWLY. PATIENT'S APPETITE IS ADEQUATE AND INTAKE IS IMPROVING. ABX ADMINISTERED. BED ALARM ON, CALL LIGHT WITHIN REACH OF PATIENT. SAFETY MEASURES IMPLEMENTED. WILL CONTINUE TO MONITOR PATIENT UNTIL END OF SHIFT.
[2019-02-28] MEDS: risperiDONE 0.5 MG TABLET PO SCH (20:40)
[2019-02-28] MEDS: BACLOFEN 10 MG TABLET PO SCH (20:40)
[2019-02-28] MEDS: SENNOSIDES 1 TABLET PO SCH (20:40)
[2019-02-28] MEDS: ESCITALOPRAM OXALATE 10 MG TABLET PO SCH (20:41)
[2019-02-28] MEDS: INSULIN GLARGINE,HUM 300 UNITS/3 ML CARTRIDGE SQ SCH (20:42)
--- NOTE | 2019-02-28 21:00 | NUR ---
LANTUS NOT ADMINISTERED DUE TO BS WITH READING 91
[2019-03-01] VITALS: BP 154/66
[2019-03-01 04:00] VITALS: BP 151/50
[2019-03-01] MEDS: FUROSEMIDE 20 MG/2 ML VIAL IV SCH ×3 (05:44→22:05)
[2019-03-01] MEDS: hydrALAZINE HCL 50 MG TABLET PO SCH ×3 (05:44→22:06)
[2019-03-01 06:37] LABS: BASOPHILS % (AUTO) 0.4 % (0.0-2.0); EOSINOPHILS # (AUTO) 0.5 K/uL (0.0-0.7); EOSINOPHILS % (AUTO) 3.9 % (0.0-7.0); HEMATOCRIT 26.3 % (31.2-41.9); HEMOGLOBIN 8.8 g/dL (10.9-14.3); LYMPHOCYTES # (AUTO) 0.8 K/uL (20.0-40.0); MEAN CORPUSCULAR HEMOGLOBIN 29.5 uug (24.7-32.8); MEAN CORPUSCULAR HGB CONC 34 g/dL (32.3-35.6); MEAN CORPUSCULAR VOLUME 88.2 fL (75.5-95.3); MONOCYTES # (AUTO) 0.9 K/uL (2.0-10.0); MONOCYTES % (AUTO) 7.1 % (0.0-11.0); NEUTROPHILS # (AUTO) 10.5 K/uL (1.8-8.9); NEUTROPHILS % (AUTO) 82.6 % (38.5-71.5); PLATELET COUNT (AUTO) 494 K/uL (179-408); RED BLOOD CELL COUNT(AUTO) 2.99 MIL/uL (3.63-4.92); WHITE BLOOD COUNT (AUTO) 12.7 K/uL (3.8-11.8)
[2019-03-01] MEDS: BLOOD SUGAR DIAGNOSTIC 1 EACH STRIP VI SCH ×4 (06:39→21:28)
[2019-03-01] MEDS: PANTOPRAZOLE SODIUM 40 MG TABLET.DR PO SCH (06:39)
[2019-03-01 07:05] LABS: ALANINE AMINOTRANSFERASE 15 U/L (14-59); ALKALINE PHOSPHATASE 70 U/L (50-136); ASPARTATE AMINOTRANSFERASE 12 U/L (15-37); BILIRUBIN,TOTAL 0.3 mg/dL (0.2-1.0); CARBON DIOXIDE 20 mmol/L (21-32); CHLORIDE 104 mmol/L (98-107); CREATININE 3.1 mg/dL (0.6-1.3); GLUCOSE 55 mg/dL (74-106); MAGNESIUM 1.8 mg/dL (1.8-2.4); PHOSPHOROUS 4.6 mg/dL (2.5-4.9); POTASSIUM 4.3 mmol/L (3.5-5.1); UREA NITROGEN, BLOOD 57 mg/dL (7-18)
--- NOTE | 2019-03-01 07:51 | NUR ---
PATIENT INTERMITTENTLY SLEEPING,NO N/V. CONTINUING ON LASIX, NO SOB.BILATERAL EXTREMITIES STILL EDEMATOUS. BS64. NO HYPOGLYCEMIC SYMPTOMS NOTED .JUICE ADMINISTERED . WILL ENDORSE TO MORNING SHIFT TO RECHECK
[2019-03-01] MEDS: MULTIVIT, IRON, MIN NO. 8, FA TABLET PO SCH (10:10)
[2019-03-01] MEDS: DOCUSATE SODIUM 100 MG/10 ML LIQUID UDC PO SCH ×2 (10:10→17:15)
[2019-03-01] MEDS: GUAIFENESIN LA 600 MG TABLET.SA PO SCH ×2 (10:10→21:24)
[2019-03-01] MEDS: ASCORBIC ACID 500 MG TABLET PO SCH (10:10)
[2019-03-01] MEDS: ESCITALOPRAM OXALATE 10 MG TABLET NG SCH (10:10)
[2019-03-01] MEDS: CYANOCOBALAMIN 1,000 MCG TABLET PO SCH (10:11)
[2019-03-01] MEDS: CETIRIZINE HCL 10 MG TABLET PO SCH (10:11)
[2019-03-01] MEDS: NIFEdipine XL 90 MG TABSR PO SCH (10:19)
[2019-03-01] MEDS: AMIODARONE HCL 200 MG TABLET PO SCH ×2 (10:19→17:15)
[2019-03-01] MEDS: ISOSORBIDE MONONITRATE 30 MG TAB.SR.24H PO SCH (10:20)
[2019-03-01] MEDS: APIXABAN 5 MG TABLET PO SCH ×2 (10:26→17:31)
[2019-03-01 11:03] VITALS: BP 153/44
[2019-03-01] MEDS: MEROPENEM 0.5 G in IV NORMAL SALINE 50 ML IV SCH (11:40)
[2019-03-01] MEDS: FLUOCINONIDE 0.05% CREAM 30 GM TUBE TP SCH ×2 (11:41→17:37)
[2019-03-01] MEDS: LIDOCAINE 5% OINT 35.44 GM TUBE TOP SCH ×3 (11:41→17:37)
[2019-03-01 15:15] VITALS: BP 130/43
--- NOTE | 2019-03-01 18:00 | NUR ---
PATIENT HAS BEEN COOPERATIVE WITH CARE. NO NEEDS AT THIS TIME, BED IN LOW POSITION, SIDE RAILS UP X2, AIR MATTRESS INFLATED. PATIENT'S BLOOD SUGARS HAVE BEEN GOOD. PATIENT MAINTAINS 2l NASAL CANNULA. PATIENTS DAUGHTER AT BEDSIDE. TOLERATING MEALS WELL.
[2019-03-01 20:00] VITALS: BP 152/46
[2019-03-01] MEDS: SENNOSIDES 1 TABLET PO SCH (21:23)
[2019-03-01] MEDS: BACLOFEN 10 MG TABLET PO SCH (21:24)
[2019-03-01] MEDS: risperiDONE 0.5 MG TABLET PO SCH (21:24)
[2019-03-01] MEDS: ESCITALOPRAM OXALATE 10 MG TABLET PO SCH (21:24)
[2019-03-01] MEDS: INSULIN GLARGINE,HUM 300 UNITS/3 ML CARTRIDGE SQ SCH (21:28)
[2019-03-01] MEDS: INSULIN REGULAR, HUMAN 300 UNIT/3 ML VIAL SQ PRN (21:32)
[2019-03-02] VITALS: BP 132/48
[2019-03-02 04:00] VITALS: BP 122/68
[2019-03-02] MEDS: PANTOPRAZOLE SODIUM 40 MG TABLET.DR PO SCH (06:14)
[2019-03-02] MEDS: hydrALAZINE HCL 50 MG TABLET PO SCH ×3 (06:15→21:07)
[2019-03-02] MEDS: FUROSEMIDE 20 MG/2 ML VIAL IV SCH ×3 (06:15→21:06)
[2019-03-02 06:31] LABS: BASOPHILS # (AUTO) 0.1 K/uL (0.0-8.0); BASOPHILS % (AUTO) 0.6 % (0.0-2.0); EOSINOPHILS # (AUTO) 0.5 K/uL (0.0-0.7); EOSINOPHILS % (AUTO) 4.3 % (0.0-7.0); HEMATOCRIT 25.9 % (31.2-41.9); HEMOGLOBIN 8.7 g/dL (10.9-14.3); LYMPHOCYTES # (AUTO) 0.8 K/uL (20.0-40.0); LYMPHOCYTES % (AUTO) 6.7 % (20.5-51.5); MEAN CORPUSCULAR HEMOGLOBIN 29.7 uug (24.7-32.8); MEAN CORPUSCULAR HGB CONC 34 g/dL (32.3-35.6); MONOCYTES % (AUTO) 8.6 % (0.0-11.0); NEUTROPHILS # (AUTO) 9.7 K/uL (1.8-8.9); NEUTROPHILS % (AUTO) 79.8 % (38.5-71.5); PLATELET COUNT (AUTO) 516 K/uL (179-408); RED BLOOD CELL COUNT(AUTO) 2.94 MIL/uL (3.63-4.92); WHITE BLOOD COUNT (AUTO) 12.2 K/uL (3.8-11.8)
[2019-03-02] MEDS: BLOOD SUGAR DIAGNOSTIC 1 EACH STRIP VI SCH ×4 (06:31→21:10)
[2019-03-02 06:40] LABS: CHLORIDE 105 mmol/L (98-107); GLUCOSE 80 mg/dL (74-106); MAGNESIUM 1.8 mg/dL (1.8-2.4); PHOSPHOROUS 4.3 mg/dL (2.5-4.9); POTASSIUM 4.2 mmol/L (3.5-5.1); UREA NITROGEN, BLOOD 59 mg/dL (7-18)
--- NOTE | 2019-03-02 07:02 | NUR ---
PATIENT ALERT AND AWAKE. NO DISCOMFORT NOTED . CONTINUE MONITORING WEIGHT. BS AC 84. KEPT CLEAN AND DRY
[2019-03-02 08:57] LABS: CARBON DIOXIDE 19 mmol/L (21-32); CREATININE 3.1 mg/dL (0.6-1.3)
[2019-03-02] MEDS: FLUOCINONIDE 0.05% CREAM 30 GM TUBE TP SCH ×2 (09:00→17:00)
[2019-03-02] MEDS: LIDOCAINE 5% OINT 35.44 GM TUBE TOP SCH ×3 (09:00→17:00)
[2019-03-02 11:08] VITALS: BP 152/51
[2019-03-02] MEDS: MEROPENEM 0.5 G in IV NORMAL SALINE 50 ML IV SCH (11:34)
[2019-03-02] MEDS: ESCITALOPRAM OXALATE 10 MG TABLET NG SCH (12:02)
[2019-03-02] MEDS: AMIODARONE HCL 200 MG TABLET PO SCH ×2 (12:03→17:25)
[2019-03-02] MEDS: DOCUSATE SODIUM 100 MG/10 ML LIQUID UDC PO SCH ×2 (12:03→17:24)
[2019-03-02] MEDS: APIXABAN 5 MG TABLET PO SCH ×2 (12:04→17:26)
[2019-03-02] MEDS: ISOSORBIDE MONONITRATE 30 MG TAB.SR.24H PO SCH (12:05)
[2019-03-02] MEDS: GUAIFENESIN LA 600 MG TABLET.SA PO SCH ×2 (12:05→21:06)
[2019-03-02] MEDS: ASCORBIC ACID 500 MG TABLET PO SCH (12:06)
[2019-03-02] MEDS: CETIRIZINE HCL 10 MG TABLET PO SCH (12:06)
[2019-03-02] MEDS: CYANOCOBALAMIN 1,000 MCG TABLET PO SCH (12:06)
[2019-03-02] MEDS: NIFEdipine XL 90 MG TABSR PO SCH (12:06)
[2019-03-02] MEDS: MULTIVIT, IRON, MIN NO. 8, FA TABLET PO SCH (12:06)
[2019-03-02 15:07] VITALS: BP 160/48
[2019-03-02 15:41] VITALS: BP 160/48
[2019-03-02] MEDS: INSULIN REGULAR, HUMAN 300 UNIT/3 ML VIAL SQ PRN (17:30)
--- NOTE | 2019-03-02 19:30 | NUR ---
RECEIVED PT AWAKE, ALERT AND ORIENTEDX4. PT IN NO ACUTE DISTRESS. IV INTACT.PT ON NASAL CANNULA. FAMILY AT BEDSIDE. SAFETY AND COMFORT PROVIDED. REPOSITIONED PT. WILL CONTINUE TO MONITOR.
[2019-03-02 20:23] VITALS: BP 150/47
[2019-03-02] MEDS: BACLOFEN 10 MG TABLET PO SCH (21:05)
[2019-03-02] MEDS: ESCITALOPRAM OXALATE 10 MG TABLET PO SCH (21:05)
[2019-03-02] MEDS: risperiDONE 0.5 MG TABLET PO SCH (21:06)
[2019-03-02] MEDS: SENNOSIDES 1 TABLET PO SCH (21:06)
[2019-03-02] MEDS: INSULIN GLARGINE,HUM 300 UNITS/3 ML CARTRIDGE SQ SCH (21:13)
[2019-03-03] VITALS: BP 153/46
[2019-03-03 04:00] VITALS: BP 143/54
[2019-03-03] MEDS: FUROSEMIDE 20 MG/2 ML VIAL IV SCH ×2 (05:19→13:07)
[2019-03-03] MEDS: hydrALAZINE HCL 50 MG TABLET PO SCH ×2 (05:19→13:07)
[2019-03-03] MEDS: PANTOPRAZOLE SODIUM 40 MG TABLET.DR PO SCH (06:11)
--- NOTE | 2019-03-03 06:12 | NUR ---
PT SLEPT INTERMITTENTLY. PT IN NO ACUTE DSITRESS. PRESCRIBED MEDICATION GIVEN AND PT TOLERATED IT WELL. WILL ENDORSED TO INCOMING NURSE FOR CONTINUITY OF CARE. SAFETY AND COMFORT PROVIDED. ALL NEEDS ARE MET.WILL ENDORSED TO INCOMING NURSE FOR CONTINUITY OF CARE.
[2019-03-03] MEDS: BLOOD SUGAR DIAGNOSTIC 1 EACH STRIP VI SCH ×3 (06:33→17:32)
[2019-03-03] MEDS ORDERED: Insulin Glargine,Hum SQ (07:20)
[2019-03-03] MEDS ORDERED: FURO-151 PO (07:20)
[2019-03-03] MEDS ORDERED: AMIO200T4 PO (07:20)
[2019-03-03 07:48] LABS: BASOPHILS # (AUTO) 0.2 K/uL (0.0-8.0); BASOPHILS % (AUTO) 1.3 % (0.0-2.0); EOSINOPHILS # (AUTO) 0.7 K/uL (0.0-0.7); EOSINOPHILS % (AUTO) 5.4 % (0.0-7.0); HEMATOCRIT 27.2 % (31.2-41.9); HEMOGLOBIN 8.8 g/dL (10.9-14.3); LYMPHOCYTES # (AUTO) 0.9 K/uL (20.0-40.0); LYMPHOCYTES % (AUTO) 6.4 % (20.5-51.5); MEAN CORPUSCULAR HGB CONC 32 g/dL (32.3-35.6); MEAN CORPUSCULAR VOLUME 89.5 fL (75.5-95.3); MONOCYTES % (AUTO) 7.1 % (0.0-11.0); NEUTROPHILS # (AUTO) 10.7 K/uL (1.8-8.9); NEUTROPHILS % (AUTO) 79.8 % (38.5-71.5); PLATELET COUNT (AUTO) 543 K/uL (179-408); RED BLOOD CELL COUNT(AUTO) 3.04 MIL/uL (3.63-4.92); WHITE BLOOD COUNT (AUTO) 13.4 K/uL (3.8-11.8)
[2019-03-03 07:54] LABS: CARBON DIOXIDE 20 mmol/L (21-32); CHLORIDE 105 mmol/L (98-107); CREATININE 2.9 mg/dL (0.6-1.3); GLUCOSE 127 mg/dL (74-106); MAGNESIUM 1.7 mg/dL (1.8-2.4); PHOSPHOROUS 4.1 mg/dL (2.5-4.9); POTASSIUM 4.1 mmol/L (3.5-5.1); UREA NITROGEN, BLOOD 57 mg/dL (7-18)
--- NOTE | 2019-03-03 08:06 | NUR ---
RECEIVED PATIENT IN BED AWAKE ALERT AND VERBALLY RESPONDS WAS SEEN BY DR HUERTAS TODAY WIT ORDER TO DISCHARGE HIM BACK TO [facility] AWAITING FOR THE SURGERY AID TO MAKE CONTACT WITH THE SNF TO ENSURE THAT THEY WILL ACCEPT HIM TODAY.
[2019-03-03] MEDS: APIXABAN 5 MG TABLET PO SCH ×2 (08:52→16:30)
[2019-03-03] MEDS: MULTIVIT, IRON, MIN NO. 8, FA TABLET PO SCH (08:53)
[2019-03-03] MEDS: ESCITALOPRAM OXALATE 10 MG TABLET NG SCH (08:54)
[2019-03-03] MEDS: CYANOCOBALAMIN 1,000 MCG TABLET PO SCH (08:54)
[2019-03-03] MEDS: ASCORBIC ACID 500 MG TABLET PO SCH (08:54)
[2019-03-03] MEDS: GUAIFENESIN LA 600 MG TABLET.SA PO SCH (08:54)
[2019-03-03] MEDS: CETIRIZINE HCL 10 MG TABLET PO SCH (08:55)
[2019-03-03] MEDS: NIFEdipine XL 90 MG TABSR PO SCH (08:56)
[2019-03-03] MEDS: AMIODARONE HCL 200 MG TABLET PO SCH ×2 (08:56→16:29)
[2019-03-03] MEDS: ISOSORBIDE MONONITRATE 30 MG TAB.SR.24H PO SCH (08:56)
[2019-03-03] MEDS: LIDOCAINE 5% OINT 35.44 GM TUBE TOP SCH ×3 (09:01→16:31)
[2019-03-03] MEDS: FLUOCINONIDE 0.05% CREAM 30 GM TUBE TP SCH ×2 (09:01→16:32)
[2019-03-03] MEDS: DOCUSATE SODIUM 100 MG/10 ML LIQUID UDC PO SCH ×2 (09:07→16:29)
[2019-03-03] MEDS: MEROPENEM 0.5 G in IV NORMAL SALINE 50 ML IV SCH (11:11)
[2019-03-03 11:32] VITALS: BP 134/86
[2019-03-03] MEDS ORDERED: MAGNESIUM OXIDE 400 MG TABLET PO ONE (12:15)
[2019-03-03] MEDS: INSULIN REGULAR, HUMAN 300 UNIT/3 ML VIAL SQ PRN (12:23)
--- NOTE | 2019-03-03 15:45 | NUR ---
CALLED [facility] AND REPORT GIVEN TO HAZEL FOR CONTINUING CARE AND PER TONIA THE ADMISSIONS PERSON AT THE [facility] THEY NEED CLINICALS SO TRAFFIC DIVISION COMMANDING OFFICER MANAGEMENT LIAISON AWARE TO SEND OVER CLINICALS.
[2019-03-03 15:58] VITALS: BP 143/44
[2019-03-03] MEDS: ACETAMINOPHEN 325 MG TABLET PO PRN (16:41)
[2019-03-03 17:53] VITALS: BP 164/52
[2019-03-03] MEDS: NITROGLYCERIN OINT 1 GM PACKET TP PRN (17:53)
--- NOTE | 2019-03-03 17:53 | NUR ---
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
--- NOTE | 2019-03-03 18:15 | NUR ---
patient discharged picked up by the ambulance in satisfactory condition with all of her personal belongings.
== END 2019-03-03 18:05 | DRG 682 ==
LOC: ER 00:52 → CCU 03:47 → TELE3 02-26 21:58
PROVIDERS: ADMIT Internal Medicine Nephrology; ATTEND Internal Medicine Nephrology
PROC: 05HF33Z Insertion of Infusion Device into Left Cephalic Vein, Percutaneous Approach (ICD-10-PCS; 2019-02-24)
PROC: 30233N1 Transfusion of Nonautologous Red Blood Cells into Peripheral Vein, Percutaneous Approach (ICD-10-PCS; principal; 2019-02-26)
DX: N17.9 Acute kidney failure, unspecified (principal); J15.9 Unspecified bacterial pneumonia; I50.33 Acute on chronic diastolic (congestive) heart failure; I69.351 Hemiplegia and hemiparesis following cerebral infarction affecting right dominant side; I13.0 Hypertensive heart and chronic kidney disease with heart failure and stage 1 through stage 4 chronic kidney disease, or unspecified chronic kidney disease; J44.0 Chronic obstructive pulmonary disease with (acute) lower respiratory infection; N18.4 Chronic kidney disease, stage 4 (severe); E87.5 Hyperkalemia; E11.22 Type 2 diabetes mellitus with diabetic chronic kidney disease; I48.0 Paroxysmal atrial fibrillation; D63.1 Anemia in chronic kidney disease; Z79.4 Long term (current) use of insulin; Z90.710 Acquired absence of both cervix and uterus; Z79.899 Other long term (current) drug therapy; Z79.01 Long term (current) use of anticoagulants; D46.9 Myelodysplastic syndrome, unspecified
CPT/HCPCS: 36415; 70030-TC; 71045; 74230; 83550; 83690; 83735; 84100; 85025; 85730; 86850; 86900; 86901; 86920; 87086; 93005; 93307; 94640; 94664; A4663; G0378; J0456; J0885; J1815; J1940; J1956; J2185; J2405; J3490; J3590; J7030; J7050; J7060; J8597; P9016-BL; P9021

== ENCOUNTER 2019-07-14 22:07 | Inpatient (IN) | payer MEDICARE, OTHER ==
[~2019-07-14] VITALS: Ht 162.6 cm; Wt 51.8 kg
[~2019-07-14 22:07] MED LIST: ACET-2154 PO; AMIO200T4 PO; APIX2.5T PO; ASCO500C18 PO; BACL10TA PO; BENZ1LOZ58 PO; BISA10SU95 RC; CETI5TAB8 PO; CYAN10009 PO; DOCU100T10 PO; ESCI5TAB10 PO; FLUO15CR TP; FURO-151 PO; GUAI-175 PO; GUAI100S9 PO; HYDR100T27 PO; INSULIN SLIDING SCALE SQ; ISOS30TA PO; Insulin Glargine,Hum SQ; LIDOCAINE OINT 5% TOP; MAGN400T8 PO; MECL-182 PO; MULT1TAB11 PO; NA P133E RC; NIFE90TA61 PO; ONDA4TAB8 PO; PANT40TA2 PO; RISP1TAB7 PO; SENN-261 PO; VOLTAREN GEL1%
[2019-07-14] MEDS ORDERED: ESCI5TAB PO (23:14)
[2019-07-14] MEDS ORDERED: EPOE20005 SUBCUT (23:14)
[2019-07-14] MEDS ORDERED: PROT946L PO (23:14)
[2019-07-14] MEDS ORDERED: ACET1TAB12 PO (23:14)
[2019-07-14] MEDS ORDERED: ONDA4TAB5 PO (23:14)
[2019-07-14] MEDS ORDERED: CYAN100T44 PO (23:14)
[2019-07-14] MEDS ORDERED: INSU100I26 SQ (23:14)
[2019-07-14] MEDS ORDERED: CETI-90 PO (23:14)
[2019-07-14 23:52] LABS: CARBON DIOXIDE 24 mmol/L (21-32); CHLORIDE 102 mmol/L (98-107); CREATININE 3.5 mg/dL (0.6-1.3); GLUCOSE 135 mg/dL (74-106); POTASSIUM 4.5 mmol/L (3.5-5.1); UREA NITROGEN, BLOOD 53 mg/dL (7-18)
[2019-07-14 23:54] LABS: BASOPHILS # (AUTO) 0.1 K/uL (0.0-8.0); BASOPHILS % (AUTO) 0.7 % (0.0-2.0); EOSINOPHILS # (AUTO) 0.4 K/uL (0.0-0.7); EOSINOPHILS % (AUTO) 4.7 % (0.0-7.0); HEMATOCRIT 31.6 % (31.2-41.9); HEMOGLOBIN 10.7 g/dL (10.9-14.3); LYMPHOCYTES # (AUTO) 1.1 K/uL (20.0-40.0); LYMPHOCYTES % (AUTO) 11.5 % (20.5-51.5); MEAN CORPUSCULAR HEMOGLOBIN 29.5 uug (24.7-32.8); MEAN CORPUSCULAR HGB CONC 34 g/dL (32.3-35.6); MONOCYTES # (AUTO) 0.8 K/uL (2.0-10.0); MONOCYTES % (AUTO) 8.4 % (0.0-11.0); NEUTROPHILS # (AUTO) 7.1 K/uL (1.8-8.9); NEUTROPHILS % (AUTO) 74.7 % (38.5-71.5); PLATELET COUNT (AUTO) 421 K/uL (179-408); RED BLOOD CELL COUNT(AUTO) 3.63 MIL/uL (3.63-4.92); WHITE BLOOD COUNT (AUTO) 9.5 K/uL (3.8-11.8)
[2019-07-14 23:58] LABS: ALANINE AMINOTRANSFERASE 29 U/L (14-59); ALKALINE PHOSPHATASE 71 U/L (50-136); ASPARTATE AMINOTRANSFERASE 21 U/L (15-37); BILIRUBIN,DIRECT 0.1 mg/dL (0.0-0.2); BILIRUBIN,TOTAL 0.3 mg/dL (0.2-1.0); TOTAL PROTEIN, SERUM 7.2 g/dL (6.4-8.2)
--- NOTE | 2019-07-15 00:22 | NUR ---
PATIENT BACK FROM CT. ISOLATION PRECAUTIONS. IV HL.
--- NOTE | 2019-07-15 01:27 | NUR ---
[facility] WAS CALLED DR THOMSON SPOKE WITH ER DR CADET ACCEPTED PATIENT FOR ADMISION.
[2019-07-15] MEDS ORDERED: CLONIDINE HCL 0.1 MG TABLET PO ONE (01:45)
[2019-07-15] MEDS ORDERED: CLONIDINE HCL 0.1 MG TABLET ONE (01:46)
[2019-07-15 01:54] LABS: *BILIRUBIN,URIN NEGATIVE (NEGATIVE); *BLOOD, URINE NEGATIVE (NEGATIVE); *CLARITY,URINE CLEAR (CLEAR); *COLOR,URINE YELLOW (YELLOW); *KETONES,URINE NEGATIVE (NEGATIVE); *UROBILINOGEN,URINE 0.2 E.U./dl (NORMAL); LEUKOCYTE ESTERASE ,URINE NEGATIVE (NEGATIVE); NITRITE, URINE NEGATIVE (NEGATIVE); PH,URINE 6.5 (5.0-8.0); UGLUCOSE NEGATIVE (NEGATIVE)
[2019-07-15 02:21] LABS: BACTERIA,URINE MANY /HPF (NONE SEEN); RBC,URINE 0-3 /HPF (0-3); SQUAMOUS EPITHELIAL CELL,UR FEW /HPF (NONE SEEN); WBC,URINE 0-3 /HPF (0-3)
[2019-07-15 02:22] LABS: URINE AMORPHOUS URATE MODERATE /HPF
--- NOTE | 2019-07-15 02:54 | NUR ---
Pt. admitted to TELE, under care of Dr. THOMSON Belongs List completed
[2019-07-15 03:30] VITALS: BP 155/60
--- NOTE | 2019-07-15 04:01 | NUR ---
Received patient from ER. Spoke to Dr. Chicas and received orders. Continue all meds. Dx: Fever. Patient is A/Ox3. No signs of acute distress noted. Complains of a headache, Patient stated that she was sitting at the edge of the bed and was reaching over and then slipped from the bed and hit her head. Head CT is negative. Heplock on the right AC is intact and patent. Body assessment done. Patient oriented to unit and room. Safety measures initiated. Bed is low and locked, call light within reach. Will continue to monitor.
[2019-07-15] MEDS ORDERED: hydrALAZINE HCL 50 MG TABLET PO SCH ×2 (04:15→14:15)
[2019-07-15 06:42] LABS: BASOPHILS # (AUTO) 0.1 K/uL (0.0-8.0); EOSINOPHILS # (AUTO) 0.5 K/uL (0.0-0.7); EOSINOPHILS % (AUTO) 5.3 % (0.0-7.0); HEMATOCRIT 30.3 % (31.2-41.9); HEMOGLOBIN 10.4 g/dL (10.9-14.3); LYMPHOCYTES # (AUTO) 1.4 K/uL (20.0-40.0); LYMPHOCYTES % (AUTO) 16.1 % (20.5-51.5); MEAN CORPUSCULAR HEMOGLOBIN 29.7 uug (24.7-32.8); MEAN CORPUSCULAR HGB CONC 34 g/dL (32.3-35.6); MONOCYTES # (AUTO) 0.8 K/uL (2.0-10.0); NEUTROPHILS # (AUTO) 5.9 K/uL (1.8-8.9); NEUTROPHILS % (AUTO) 68.6 % (38.5-71.5); PLATELET COUNT (AUTO) 380 K/uL (179-408); RED BLOOD CELL COUNT(AUTO) 3.49 MIL/uL (3.63-4.92); WHITE BLOOD COUNT (AUTO) 8.6 K/uL (3.8-11.8)
[2019-07-15] MEDS ORDERED: hydrALAZINE HCL 50 MG TABLET PO PRN ×2 (07:14→07:45)
[2019-07-15 07:22] LABS: CARBON DIOXIDE 25 mmol/L (21-32); CHLORIDE 106 mmol/L (98-107); CREATININE 3.4 mg/dL (0.6-1.3); GLUCOSE 102 mg/dL (74-106); POTASSIUM 4.2 mmol/L (3.5-5.1); UREA NITROGEN, BLOOD 51 mg/dL (7-18)
[2019-07-15] MEDS ORDERED: MECLIZINE HCL 12.5 MG TABLET PO PRN (07:45)
[2019-07-15] MEDS ORDERED: BISACODYL 10 MG SUPP.RECT RC PRN (07:45)
[2019-07-15] MEDS ORDERED: FLEET ENEMA 133 ML BOTTLE RC PRN (07:45)
[2019-07-15] MEDS ORDERED: ACETAMINOPHEN 325 MG TABLET PO PRN (07:45)
[2019-07-15] MEDS ORDERED: ONDANSETRON HCL 4 MG TABLET PO PRN (07:45)
[2019-07-15] MEDS ORDERED: HOME MED MISCELLANEOUS XX SCH (07:45)
[2019-07-15] MEDS: PANTOPRAZOLE SODIUM 40 MG TABLET.DR PO SCH (08:12)
[2019-07-15] MEDS: MULTIVIT, IRON, MIN NO. 8, FA TABLET PO SCH (08:12)
[2019-07-15] MEDS: DOCUSATE SODIUM 100 MG CAPSULE PO SCH ×2 (08:13→20:47)
[2019-07-15] MEDS: NIFEdipine XL 90 MG TABSR PO SCH (08:13)
[2019-07-15] MEDS: ISOSORBIDE MONONITRATE 30 MG TAB.SR.24H PO SCH (08:13)
[2019-07-15] MEDS: FLUOCINONIDE 0.05% CREAM 30 GM TUBE TP SCH ×2 (08:18→20:49)
[2019-07-15] MEDS: PROTEIN SUPPLEMENT (PROSTAT) 30 ML LIQUID PO SCH ×2 (08:18→16:17)
[2019-07-15] MEDS: APIXABAN 5 MG TABLET PO SCH ×2 (08:29→16:17)
[2019-07-15 09:23] VITALS: BP 183/65
[2019-07-15] MEDS: FUROSEMIDE 20 MG/2 ML VIAL IV SCH (11:25)
--- NOTE | 2019-07-15 12:14 | NUR ---
WOUND CARE CONSULT: REVIEWED CHART, NURSING DOCUMENTATION AND PHOTOS WHICH SHOW SACRAL/BUTTOCKS WOUNDS AND SCABS ON LEGS, PRESENT ON ADMISSION. RECOMMEND SURGICAL CONSULT. DR LIMA NOTIFIED OF CONSULT REQUEST. RECOMMENDATIONS MADE FOR SKIN PROTECTION. DISCUSSED WITH NURSING STAFF. WILL SEE PRN. HC IN AGREEMENT WITH PLAN OF CARE. Addendum: 07/15/19 at 1240 by CRISTINA BOURNE RN ABOVE WOUND CARE CONSULT WAS DONE BY CRISTINA BOURNE BLOCK HACKER.
[2019-07-15] MEDS ORDERED: Z GUARD REMEDY PASTE 57 GM TUBE TOP PRN (12:15)
[2019-07-15] MEDS: ESCITALOPRAM OXALATE 10 MG TABLET PO SCH (12:42)
[2019-07-15] MEDS: CETIRIZINE HCL 10 MG TABLET PO SCH (12:43)
[2019-07-15] MEDS: LIDOCAINE 5% OINT 35.44 GM TUBE TOP SCH ×2 (12:44→16:17)
[2019-07-15] MEDS: AMIODARONE HCL 200 MG TABLET PO SCH ×2 (12:44→20:47)
--- NOTE | 2019-07-15 18:04 | NUR ---
Patient seen and examined by wound care nurse and podiatry. Continue z-guard daily for skin protection. Continue blood pressure with HTN medicine- controlled. will continue monitor
[2019-07-15 18:30] VITALS: BP 110/55
--- NOTE | 2019-07-15 19:35 | NUR ---
Appears sleeping during initial rounds. Opened eyes when name called. No s/s of respiratory distress. Denied any pain/discomforts. Contact isolation maintained and observed. SR/SB on the monitor. Safety measures and fall precaution maintained. Continue care as planned.
[2019-07-15] MEDS: SENNOSIDES 1 TABLET PO SCH (20:46)
[2019-07-15] MEDS: CYANOCOBALAMIN 100 MCG TABLET PO SCH (20:47)
[2019-07-15] MEDS: BACLOFEN 10 MG TABLET PO SCH (20:47)
[2019-07-15] MEDS: Z GUARD REMEDY PASTE 57 GM TUBE TOP SCH (20:48)
[2019-07-15] MEDS ORDERED: MAGNESIUM OXIDE 400 MG TABLET PO SCH (21:00)
[2019-07-15] MEDS: INSULIN GLARGINE,HUM 300 UNITS/3 ML CARTRIDGE SQ SCH (21:04)
[2019-07-15] MEDS: hydrALAZINE HCL 50 MG TABLET PO SCH (21:43)
[2019-07-16] MEDS: hydrALAZINE HCL 50 MG TABLET PO SCH ×3 (05:36→21:35)
[2019-07-16] MEDS: PANTOPRAZOLE SODIUM 40 MG TABLET.DR PO SCH (05:37)
--- NOTE | 2019-07-16 06:28 | NUR ---
Shift End Report: VS stable. Remain afebrile. Denied any pain. No s/s of respiratory distress. Slept good. Contact isolation maintained. No significant event reported.
--- NOTE | 2019-07-16 07:15 | NUR ---
Received patient resting in bed, awake and alert. Patient denies pain and discomfort. No S/S of SOB. Bed in lowest position , side rails up x2, call light within reach. Will continue to monitor.
[2019-07-16 07:56] LABS: BASOPHILS # (AUTO) 0.1 K/uL (0.0-8.0); BASOPHILS % (AUTO) 1.4 % (0.0-2.0); EOSINOPHILS # (AUTO) 0.5 K/uL (0.0-0.7); EOSINOPHILS % (AUTO) 5.4 % (0.0-7.0); HEMATOCRIT 32.3 % (31.2-41.9); HEMOGLOBIN 10.7 g/dL (10.9-14.3); LYMPHOCYTES # (AUTO) 1.5 K/uL (20.0-40.0); LYMPHOCYTES % (AUTO) 15.3 % (20.5-51.5); MEAN CORPUSCULAR HGB CONC 33 g/dL (32.3-35.6); MEAN CORPUSCULAR VOLUME 87.9 fL (75.5-95.3); MONOCYTES # (AUTO) 0.8 K/uL (2.0-10.0); MONOCYTES % (AUTO) 8.1 % (0.0-11.0); NEUTROPHILS # (AUTO) 6.7 K/uL (1.8-8.9); NEUTROPHILS % (AUTO) 69.8 % (38.5-71.5); PLATELET COUNT (AUTO) 402 K/uL (179-408); RED BLOOD CELL COUNT(AUTO) 3.67 MIL/uL (3.63-4.92); WHITE BLOOD COUNT (AUTO) 9.5 K/uL (3.8-11.8)
[2019-07-16] MEDS: PROTEIN SUPPLEMENT (PROSTAT) 30 ML LIQUID PO SCH ×2 (08:00→16:32)
[2019-07-16 08:07] LABS: ALANINE AMINOTRANSFERASE 29 U/L (14-59); ALKALINE PHOSPHATASE 68 U/L (50-136); ASPARTATE AMINOTRANSFERASE 22 U/L (15-37); BILIRUBIN,TOTAL 0.3 mg/dL (0.2-1.0); CARBON DIOXIDE 22 mmol/L (21-32); CHLORIDE 105 mmol/L (98-107); CREATININE 3.7 mg/dL (0.6-1.3); GLUCOSE 84 mg/dL (74-106); MAGNESIUM 2.3 mg/dL (1.8-2.4); TOTAL PROTEIN, SERUM 6.6 g/dL (6.4-8.2); UREA NITROGEN, BLOOD 60 mg/dL (7-18)
[2019-07-16] MEDS: FUROSEMIDE 20 MG/2 ML VIAL IV SCH (08:21)
[2019-07-16] MEDS: DOCUSATE SODIUM 100 MG CAPSULE PO SCH ×2 (08:21→21:34)
[2019-07-16] MEDS: AMIODARONE HCL 200 MG TABLET PO SCH ×2 (08:22→21:00)
[2019-07-16] MEDS: ISOSORBIDE MONONITRATE 30 MG TAB.SR.24H PO SCH (08:23)
[2019-07-16] MEDS: ESCITALOPRAM OXALATE 10 MG TABLET PO SCH (08:23)
[2019-07-16] MEDS: MULTIVIT, IRON, MIN NO. 8, FA TABLET PO SCH (08:24)
[2019-07-16] MEDS: NIFEdipine XL 90 MG TABSR PO SCH (08:24)
[2019-07-16] MEDS: Z GUARD REMEDY PASTE 57 GM TUBE TOP SCH ×2 (08:25→21:34)
[2019-07-16] MEDS: CETIRIZINE HCL 10 MG TABLET PO SCH (08:25)
[2019-07-16] MEDS: FLUOCINONIDE 0.05% CREAM 30 GM TUBE TP SCH ×2 (08:26→21:35)
[2019-07-16] MEDS: LIDOCAINE 5% OINT 35.44 GM TUBE TOP SCH ×3 (08:26→16:33)
[2019-07-16] MEDS: APIXABAN 5 MG TABLET PO SCH ×2 (08:29→16:34)
[2019-07-16] MEDS ORDERED: FUROSEMIDE 40 MG TABLET PO SCH (09:00)
[2019-07-16 15:09] VITALS: BP 161/56
[2019-07-16 17:18] VITALS: BP 134/52
[2019-07-16 20:00] VITALS: BP 148/74
--- NOTE | 2019-07-16 20:00 | NUR ---
Received report from RACHEL Medrano. Patient shows no signs or symptoms of distress at this time. Patient is alert and oriented x3. Vital signs stable. Patient is Sinus Nate 40s on the tele monitor but is asymptomatic. Bed set to lowest position. Side rails X2 are up. Call light within reach. Will continue to monitor patient.
[2019-07-16 20:32] VITALS: BP 143/49
--- NOTE | 2019-07-16 21:19 | NUR ---
Pt is Sinus sangeeta as low as 37 when resting with prolonged QT on tele monitor. Patient is asymptomatic and states, "I feel fine." Dr. Seaman notified and received orders to hold Amiodarone and to observe. Will continue to monitor patient.
[2019-07-16] MEDS: BACLOFEN 10 MG TABLET PO SCH (21:34)
[2019-07-16] MEDS: CYANOCOBALAMIN 100 MCG TABLET PO SCH (21:34)
[2019-07-16] MEDS: SENNOSIDES 1 TABLET PO SCH (21:34)
[2019-07-16] MEDS: INSULIN GLARGINE,HUM 300 UNITS/3 ML CARTRIDGE SQ SCH (21:36)
[2019-07-17 00:03] VITALS: BP 150/44
[2019-07-17 04:32] VITALS: BP 179/48
--- NOTE | 2019-07-17 05:00 | NUR ---
Blood pressure 179/48. Patient asymptomatic and reports that she feels fine. Hydralazine given as per MD order. Will recheck BP.
[2019-07-17] MEDS: hydrALAZINE HCL 50 MG TABLET PO SCH ×3 (05:07→22:05)
--- NOTE | 2019-07-17 05:39 | NUR ---
STAT EKG ordered. Pt is junctional escape HR is 35 sustained. Pt asymptomatic and states, "I feel fine." RT notified of ordered EKG.
[2019-07-17] MEDS: PANTOPRAZOLE SODIUM 40 MG TABLET.DR PO SCH (06:20)
[2019-07-17 06:40] VITALS: BP 160/40
--- NOTE | 2019-07-17 06:46 | NUR ---
Pt is junctional rhythm on EKG. Patient shows no signs or symptoms of distress at this time. Message left with Dr. Seaman. Awaiting response. Addendum: 07/17/19 at 0700 by CODY DRAKE RN Vital signs when awake are: BP-160/40, P-44, T-97.8 and O2-98% on RA.
[2019-07-17 06:47] LABS: BASOPHILS # (AUTO) 0.1 K/uL (0.0-8.0); EOSINOPHILS # (AUTO) 0.3 K/uL (0.0-0.7); EOSINOPHILS % (AUTO) 2.7 % (0.0-7.0); HEMATOCRIT 31.8 % (31.2-41.9); HEMOGLOBIN 10.6 g/dL (10.9-14.3); LYMPHOCYTES # (AUTO) 1.1 K/uL (20.0-40.0); LYMPHOCYTES % (AUTO) 11.4 % (20.5-51.5); MEAN CORPUSCULAR HEMOGLOBIN 29.5 uug (24.7-32.8); MEAN CORPUSCULAR HGB CONC 33 g/dL (32.3-35.6); MEAN CORPUSCULAR VOLUME 88.5 fL (75.5-95.3); MONOCYTES # (AUTO) 0.7 K/uL (2.0-10.0); MONOCYTES % (AUTO) 7.7 % (0.0-11.0); NEUTROPHILS # (AUTO) 7.4 K/uL (1.8-8.9); NEUTROPHILS % (AUTO) 77.2 % (38.5-71.5); PLATELET COUNT (AUTO) 416 K/uL (179-408); RED BLOOD CELL COUNT(AUTO) 3.59 MIL/uL (3.63-4.92); WHITE BLOOD COUNT (AUTO) 9.6 K/uL (3.8-11.8)
[2019-07-17 06:49] LABS: ALANINE AMINOTRANSFERASE 26 U/L (14-59); ALKALINE PHOSPHATASE 55 U/L (50-136); ASPARTATE AMINOTRANSFERASE 18 U/L (15-37); BILIRUBIN,TOTAL 0.1 mg/dL (0.2-1.0); CARBON DIOXIDE 22 mmol/L (21-32); CHLORIDE 104 mmol/L (98-107); CREATININE 4.5 mg/dL (0.6-1.3); GLUCOSE 72 mg/dL (74-106); MAGNESIUM 2.4 mg/dL (1.8-2.4); PHOSPHOROUS 5.2 mg/dL (2.5-4.9); POTASSIUM 4.1 mmol/L (3.5-5.1); TOTAL PROTEIN, SERUM 6.7 g/dL (6.4-8.2); UREA NITROGEN, BLOOD 67 mg/dL (7-18)
--- NOTE | 2019-07-17 08:00 | NUR ---
received pt. resting in bed alert oriented x3. pt. denies pain/ discomfort. pt. denies sob/ difficulty breathing. pt. appears in no distress. pt. on tele monitor in junctional rhythm HR in 40s. PM nurse contacted Dr. Seaman regarding EKG done awaiting reply. IV in R AC 20 gauge intact patent saline lock. safety measures in place. call light within reach.
[2019-07-17] MEDS: DOCUSATE SODIUM 100 MG CAPSULE PO SCH ×2 (08:48→21:59)
[2019-07-17] MEDS: MULTIVIT, IRON, MIN NO. 8, FA TABLET PO SCH (08:49)
[2019-07-17] MEDS: ESCITALOPRAM OXALATE 10 MG TABLET PO SCH (08:49)
[2019-07-17] MEDS: CETIRIZINE HCL 10 MG TABLET PO SCH (08:49)
[2019-07-17] MEDS: PROTEIN SUPPLEMENT (PROSTAT) 30 ML LIQUID PO SCH ×2 (08:53→17:20)
[2019-07-17] MEDS: Z GUARD REMEDY PASTE 57 GM TUBE TOP SCH ×2 (08:53→22:01)
[2019-07-17] MEDS: NIFEdipine XL 90 MG TABSR PO SCH (08:53)
[2019-07-17] MEDS: ISOSORBIDE MONONITRATE 30 MG TAB.SR.24H PO SCH (08:53)
[2019-07-17] MEDS: APIXABAN 5 MG TABLET PO SCH ×2 (08:55→17:35)
[2019-07-17] MEDS: FLUOCINONIDE 0.05% CREAM 30 GM TUBE TP SCH ×2 (08:56→21:00)
[2019-07-17] MEDS: LIDOCAINE 5% OINT 35.44 GM TUBE TOP SCH ×4 (08:56→22:01)
[2019-07-17] MEDS ORDERED: FUROSEMIDE 40 MG TABLET PO SCH (09:00)
--- NOTE | 2019-07-17 09:17 | NUR ---
reply back from Dr. Seaman to discontinue amiodorane. Will put in order. According to tele monitor pt. is sinus bradycardia but hard to tell since pt. is moving too much. HR 60. BP is elevated before AM BP medications at 204/54. Will reassess BP again
--- NOTE | 2019-07-17 12:11 | NUR ---
Pt.'s BP remains elevated at 179/[address] Nick no call back yet. Pt. remains asymptomatic resting in bed. pt. is sinus sangeeta.
--- NOTE | 2019-07-17 12:34 | NUR ---
new order of nitro paste 1g q6h PRN for elevated BP per. Dr. Nick
[2019-07-17] MEDS ORDERED: EPOETIN ALFA 20,000 UNIT/ML ML SQ SCH (14:00)
[2019-07-17 16:02] VITALS: BP 151/95
--- NOTE | 2019-07-17 16:51 | NUR ---
Pt. has 1 L of urine in bladder. Order from Dr. Chicas to insert vigil catheter. Pt. refuses. Educated pt. on importance of catheter. Pt. still refused. Pt. urinate 200 cc of urine. Pt. is still retaining 800 cc of urine.
--- NOTE | 2019-07-17 18:37 | NUR ---
vigil catheter inserted clear yellow urine draining by gravity. pt. sinus sangeeta HR 52. pt. denies pain/ discomfort. safety measures in place. call light within reach. will endorse to pm nurse
[2019-07-17 20:00] VITALS: BP 122/42
--- NOTE | 2019-07-17 20:41 | NUR ---
urine is draining blood clots, color is blood tinged
[2019-07-17] MEDS: ACETAMINOPHEN 325 MG TABLET PO PRN (21:59)
[2019-07-17] MEDS: CYANOCOBALAMIN 100 MCG TABLET PO SCH (21:59)
[2019-07-17] MEDS: BACLOFEN 10 MG TABLET PO SCH (21:59)
[2019-07-17] MEDS: SENNOSIDES 1 TABLET PO SCH (21:59)
[2019-07-17] MEDS ORDERED: hydrALAZINE HCL 50 MG TABLET PO SCH (22:00)
[2019-07-17] MEDS: INSULIN GLARGINE,HUM 300 UNITS/3 ML CARTRIDGE SQ SCH (22:09)
[2019-07-18] VITALS: BP 131/46
[2019-07-18 04:00] VITALS: BP 143/55
[2019-07-18] MEDS: hydrALAZINE HCL 50 MG TABLET PO SCH ×3 (06:13→21:12)
[2019-07-18] MEDS: PANTOPRAZOLE SODIUM 40 MG TABLET.DR PO SCH (06:13)
[2019-07-18] MEDS: ACETAMINOPHEN/CODEINE 300-30 MG TABLET PO PRN ×2 (06:53→21:58)
[2019-07-18 07:20] LABS: CARBON DIOXIDE 22 mmol/L (21-32); CHLORIDE 106 mmol/L (98-107); CREATININE 3.9 mg/dL (0.6-1.3); MAGNESIUM 2.4 mg/dL (1.8-2.4); PHOSPHOROUS 4.7 mg/dL (2.5-4.9); UREA NITROGEN, BLOOD 68 mg/dL (7-18)
[2019-07-18 07:22] LABS: GLUCOSE 48 mg/dL (74-106)
[2019-07-18 07:30] LABS: BASOPHILS % (AUTO) 0.4 % (0.0-2.0); EOSINOPHILS # (AUTO) 0.1 K/uL (0.0-0.7); EOSINOPHILS % (AUTO) 1.1 % (0.0-7.0); HEMATOCRIT 32.1 % (31.2-41.9); HEMOGLOBIN 10.7 g/dL (10.9-14.3); LYMPHOCYTES # (AUTO) 0.9 K/uL (20.0-40.0); LYMPHOCYTES % (AUTO) 9.2 % (20.5-51.5); MEAN CORPUSCULAR HEMOGLOBIN 29.4 uug (24.7-32.8); MEAN CORPUSCULAR HGB CONC 34 g/dL (32.3-35.6); MEAN CORPUSCULAR VOLUME 87.7 fL (75.5-95.3); MONOCYTES # (AUTO) 0.5 K/uL (2.0-10.0); MONOCYTES % (AUTO) 4.9 % (0.0-11.0); NEUTROPHILS # (AUTO) 8.7 K/uL (1.8-8.9); NEUTROPHILS % (AUTO) 84.4 % (38.5-71.5); PLATELET COUNT (AUTO) 420 K/uL (179-408); RED BLOOD CELL COUNT(AUTO) 3.66 MIL/uL (3.63-4.92); WHITE BLOOD COUNT (AUTO) 10.2 K/uL (3.8-11.8)
--- NOTE | 2019-07-18 07:47 | NUR ---
received pt. resting in bed alert oriented x3. pt. denies pain/ discomfort. pt. denies sob/ difficulty breathing. pt. appears in no distress. pt. on tele monitor in sinus sangeeta HR in 50s. pt. has vigil catheter in place blood tined urine draining. Pt. blood sugar reported at 48, gave orange juice and rechecked after 15 minutes blood sugar is now 76. IV in R AC 20 gauge intact patent saline lock. safety measures in place. call light within reach.
[2019-07-18] MEDS: CETIRIZINE HCL 10 MG TABLET PO SCH (08:19)
[2019-07-18] MEDS: MULTIVIT, IRON, MIN NO. 8, FA TABLET PO SCH (08:19)
[2019-07-18] MEDS: ISOSORBIDE MONONITRATE 30 MG TAB.SR.24H PO SCH (08:19)
[2019-07-18] MEDS: PROTEIN SUPPLEMENT (PROSTAT) 30 ML LIQUID PO SCH ×2 (08:19→17:12)
[2019-07-18] MEDS: DOCUSATE SODIUM 100 MG CAPSULE PO SCH ×2 (08:19→21:10)
[2019-07-18] MEDS: ESCITALOPRAM OXALATE 10 MG TABLET PO SCH (08:20)
[2019-07-18] MEDS: NIFEdipine XL 90 MG TABSR PO SCH (08:20)
[2019-07-18] MEDS: Z GUARD REMEDY PASTE 57 GM TUBE TOP SCH ×2 (08:21→21:13)
[2019-07-18] MEDS: FLUOCINONIDE 0.05% CREAM 30 GM TUBE TP SCH ×2 (08:21→21:12)
[2019-07-18 08:24] VITALS: BP 150/103
[2019-07-18] MEDS: APIXABAN 5 MG TABLET PO SCH ×2 (08:28→17:10)
[2019-07-18] MEDS ORDERED: FOSFOMYCIN TROMETHAMINE 3 GM PACKET PO ONE (13:00)
[2019-07-18] MEDS: LIDOCAINE 5% OINT 35.44 GM TUBE TOP SCH ×2 (13:17→17:15)
[2019-07-18 16:18] VITALS: BP 139/45
--- NOTE | 2019-07-18 20:00 | NUR ---
Jordan was irrigated twice, several clots and white sediment was flushed out, mild pink tinge to the urine color.
[2019-07-18] MEDS: INSULIN GLARGINE,HUM 300 UNITS/3 ML CARTRIDGE SQ SCH (21:00)
[2019-07-18] MEDS ORDERED: AMOXICILLIN-CLAVUL 500-125MG TABLET PO SCH (21:00)
[2019-07-18] MEDS: CYANOCOBALAMIN 100 MCG TABLET PO SCH (21:10)
[2019-07-18] MEDS: SENNOSIDES 1 TABLET PO SCH (21:12)
[2019-07-18] MEDS: BACLOFEN 10 MG TABLET PO SCH (21:13)
--- NOTE | 2019-07-18 21:30 | NUR ---
Lantus held for safety, glucose level is 86, patient is refusing to eat or drink anything, had a blood glucose of 42 in the morning d/t to poor intake after Lantus.
[2019-07-19] VITALS (8 sets, daily range): BP systolic 135–193; BP diastolic 51–94
[2019-07-19] MEDS: NITROGLYCERIN OINT 1 GM PACKET TP PRN ×2 (00:31→15:59)
[2019-07-19] MEDS: hydrALAZINE HCL 50 MG TABLET PO SCH ×3 (05:16→21:10)
[2019-07-19] MEDS: ACETAMINOPHEN 325 MG TABLET PO PRN (05:27)
[2019-07-19 06:21] LABS: BASOPHILS # (AUTO) 0.1 K/uL (0.0-8.0); BASOPHILS % (AUTO) 0.8 % (0.0-2.0); EOSINOPHILS # (AUTO) 0.3 K/uL (0.0-0.7); EOSINOPHILS % (AUTO) 2.6 % (0.0-7.0); HEMATOCRIT 29.9 % (31.2-41.9); HEMOGLOBIN 10.1 g/dL (10.9-14.3); LYMPHOCYTES # (AUTO) 1.2 K/uL (20.0-40.0); LYMPHOCYTES % (AUTO) 10.9 % (20.5-51.5); MEAN CORPUSCULAR HEMOGLOBIN 29.7 uug (24.7-32.8); MEAN CORPUSCULAR HGB CONC 34 g/dL (32.3-35.6); MEAN CORPUSCULAR VOLUME 87.7 fL (75.5-95.3); MONOCYTES # (AUTO) 0.6 K/uL (2.0-10.0); MONOCYTES % (AUTO) 5.2 % (0.0-11.0); NEUTROPHILS # (AUTO) 8.6 K/uL (1.8-8.9); NEUTROPHILS % (AUTO) 80.5 % (38.5-71.5); PLATELET COUNT (AUTO) 428 K/uL (179-408); RED BLOOD CELL COUNT(AUTO) 3.41 MIL/uL (3.63-4.92); WHITE BLOOD COUNT (AUTO) 10.7 K/uL (3.8-11.8)
[2019-07-19 06:30] LABS: CARBON DIOXIDE 24 mmol/L (21-32); CHLORIDE 102 mmol/L (98-107); CREATININE 3.9 mg/dL (0.6-1.3); GLUCOSE 85 mg/dL (74-106); MAGNESIUM 2.3 mg/dL (1.8-2.4); PHOSPHOROUS 4.7 mg/dL (2.5-4.9); POTASSIUM 4.7 mmol/L (3.5-5.1); UREA NITROGEN, BLOOD 63 mg/dL (7-18)
[2019-07-19] MEDS: PANTOPRAZOLE SODIUM 40 MG TABLET.DR PO SCH (06:34)
--- NOTE | 2019-07-19 08:00 | NUR ---
Received pt in bed AOx4, on RA with no SOB or distress noted at this tomte. IV on right AC flushed and patent. Right arm contracted but can be moved up and down. Jordan catheter in place draining pink-tinged urine with few clots, will flush Q4 until clear as ordered. Bilateral extremities with scabs noted. Bed locked in lowest position with siderails 2x up. Call light within reach. Will monitor
[2019-07-19] MEDS: DOCUSATE SODIUM 100 MG CAPSULE PO SCH ×2 (09:38→20:14)
[2019-07-19] MEDS: NIFEdipine XL 90 MG TABSR PO SCH (09:38)
[2019-07-19] MEDS: MULTIVIT, IRON, MIN NO. 8, FA TABLET PO SCH (09:39)
[2019-07-19] MEDS: ISOSORBIDE MONONITRATE 30 MG TAB.SR.24H PO SCH (09:39)
[2019-07-19] MEDS: CETIRIZINE HCL 10 MG TABLET PO SCH (09:39)
[2019-07-19] MEDS: ESCITALOPRAM OXALATE 10 MG TABLET PO SCH (09:40)
[2019-07-19] MEDS: LIDOCAINE 5% OINT 35.44 GM TUBE TOP SCH ×3 (09:40→17:14)
[2019-07-19] MEDS: FLUOCINONIDE 0.05% CREAM 30 GM TUBE TP SCH ×2 (09:41→20:23)
[2019-07-19] MEDS: Z GUARD REMEDY PASTE 57 GM TUBE TOP SCH ×2 (09:41→20:23)
[2019-07-19] MEDS: PROTEIN SUPPLEMENT (PROSTAT) 30 ML LIQUID PO SCH ×2 (09:48→17:07)
[2019-07-19] MEDS: APIXABAN 5 MG TABLET PO SCH ×2 (10:43→17:07)
--- NOTE | 2019-07-19 11:11 | NUR ---
Flushed vigil catheter. Aspirated clear, pink-tinged urine. Inquired with Ana Lilia Sanders if ok to give Eliquis, she said it's ok. Eliquis 2.5mg given for Afib
[2019-07-19] MEDS: ACETAMINOPHEN/CODEINE 300-30 MG TABLET PO PRN (15:59)
--- NOTE | 2019-07-19 17:59 | NUR ---
Patient has been complaining of itchiness throughout shift. Seen scratching all over her body, reinforced education not to scratch. Ointment as ordered was applied. Dr. Chicas was notified. Noticed a partial skin loss in vaginal area, saw patient scratched it. Took picture, placed in chart
--- NOTE | 2019-07-19 19:20 | NUR ---
Received patient lying in bed. AAOx3-4. In no acute distress. Denies any pain or SOB. Able to make needs known. IV site on left FA intact and patent. NSR on tele at 86/min. Jordan catheter intact and patent. Still with slight hematuria on Jordan bag noted. Will flush per order. Right upper extremity and BLE contracted. Reposition for comfort. Safety measure initiated and call de oliveira within reached.
[2019-07-19] MEDS: SENNOSIDES 1 TABLET PO SCH (20:14)
[2019-07-19] MEDS: BACLOFEN 10 MG TABLET PO SCH (20:14)
[2019-07-19] MEDS: CYANOCOBALAMIN 100 MCG TABLET PO SCH (20:14)
[2019-07-19] MEDS: INSULIN GLARGINE,HUM 300 UNITS/3 ML CARTRIDGE SQ SCH (20:20)
--- NOTE | 2019-07-19 21:15 | NUR ---
Flushed patient Jordan catheter. Still with minimal hematuria and sediments noted. Continue to monitor. Addendum: 07/19/19 at 2141 by YVONNE SCHMITZ RN Amended: Links added.
--- NOTE | 2019-07-19 21:53 | NUR ---
Spoke to Dr. Chicas and informed him that pt is positive for UTI (Enterococcus Faecalis) and patient is not on any antibiotics. Dr. Chicsa ordered Zyvox for pharmacy to dose. Telephone call to outside pharmacy [facility] and instructed to place patient on Zyvox 600mg PO q12 hours to start dose in am elva.
[2019-07-19] MEDS ORDERED: hydrOXYzine HCL 25 MG TABLET PO PRN (22:15)
[2019-07-19] MEDS ORDERED: diphenhydrAMINE 50 MG/1 ML VIAL IV ONE (22:15)
--- NOTE | 2019-07-19 22:20 | NUR ---
Patient complaining of itching all over her body constantly, even after Lidex cream had been applied. Informed Dr. Mejia and ordered Benadryl 25mg IV once and Atarax 25mg PO every 6 hours PRN for itching. Will carry out orders.
[2019-07-20 00:18] VITALS: BP 114/51
[2019-07-20] MEDS: ACETAMINOPHEN/CODEINE 300-30 MG TABLET PO PRN (03:00)
[2019-07-20 04:21] VITALS: BP 139/48
--- NOTE | 2019-07-20 05:12 | NUR ---
Miguelito Jordan per order. No further hematuria noted. Addendum: 07/20/19 at 0512 by YVONNE SCHMITZ RN Amended: Links added.
[2019-07-20] MEDS: hydrALAZINE HCL 50 MG TABLET PO SCH ×2 (05:55→14:05)
[2019-07-20] MEDS: PANTOPRAZOLE SODIUM 40 MG TABLET.DR PO SCH (06:10)
--- NOTE | 2019-07-20 06:12 | NUR ---
AAOx3-4. In no acute distress. Denies any SOB. Tylenol #3 1 tab PO given for complain of bilateral leg pain and effective. IV site on left FA intact and patent. NSR on tele at 90/min. Jordan catheter intact and patent. No further hematuria noted. Reposition for comfort. Safety measure maintained and call de oliveira within reached.
--- NOTE | 2019-07-20 07:10 | NUR ---
Received patient in bed, asleep. Patient shows no s/s of acute distress or pain. Bed in lowest position, side rails up x2, call light within reach. Will continue to monitor.
[2019-07-20 07:15] LABS: BASOPHILS # (AUTO) 0.1 K/uL (0.0-8.0); BASOPHILS % (AUTO) 0.9 % (0.0-2.0); EOSINOPHILS # (AUTO) 0.1 K/uL (0.0-0.7); EOSINOPHILS % (AUTO) 0.6 % (0.0-7.0); HEMATOCRIT 31.1 % (31.2-41.9); HEMOGLOBIN 10.6 g/dL (10.9-14.3); LYMPHOCYTES # (AUTO) 0.5 K/uL (20.0-40.0); LYMPHOCYTES % (AUTO) 4.6 % (20.5-51.5); MEAN CORPUSCULAR HEMOGLOBIN 29.9 uug (24.7-32.8); MEAN CORPUSCULAR HGB CONC 34 g/dL (32.3-35.6); MEAN CORPUSCULAR VOLUME 87.5 fL (75.5-95.3); MONOCYTES # (AUTO) 0.6 K/uL (2.0-10.0); MONOCYTES % (AUTO) 5.5 % (0.0-11.0); NEUTROPHILS % (AUTO) 88.4 % (38.5-71.5); PLATELET COUNT (AUTO) 437 K/uL (179-408); RED BLOOD CELL COUNT(AUTO) 3.55 MIL/uL (3.63-4.92); WHITE BLOOD COUNT (AUTO) 10.2 K/uL (3.8-11.8)
[2019-07-20 07:37] LABS: CARBON DIOXIDE 22 mmol/L (21-32); CHLORIDE 107 mmol/L (98-107); CREATININE 3.8 mg/dL (0.6-1.3); GLUCOSE 56 mg/dL (74-106); MAGNESIUM 2.6 mg/dL (1.8-2.4); PHOSPHOROUS 5.5 mg/dL (2.5-4.9); POTASSIUM 4.4 mmol/L (3.5-5.1); UREA NITROGEN, BLOOD 66 mg/dL (7-18)
[2019-07-20] MEDS: PROTEIN SUPPLEMENT (PROSTAT) 30 ML LIQUID PO SCH (08:00)
[2019-07-20] MEDS: DOCUSATE SODIUM 100 MG CAPSULE PO SCH (08:19)
[2019-07-20] MEDS: MULTIVIT, IRON, MIN NO. 8, FA TABLET PO SCH (08:19)
[2019-07-20] MEDS: ESCITALOPRAM OXALATE 10 MG TABLET PO SCH (08:20)
[2019-07-20] MEDS: CETIRIZINE HCL 10 MG TABLET PO SCH (08:20)
[2019-07-20] MEDS: NIFEdipine XL 90 MG TABSR PO SCH (08:20)
[2019-07-20] MEDS: ISOSORBIDE MONONITRATE 30 MG TAB.SR.24H PO SCH (08:21)
[2019-07-20] MEDS: APIXABAN 5 MG TABLET PO SCH (08:21)
[2019-07-20] MEDS: Z GUARD REMEDY PASTE 57 GM TUBE TOP SCH (08:22)
[2019-07-20] MEDS: FLUOCINONIDE 0.05% CREAM 30 GM TUBE TP SCH (08:22)
[2019-07-20] MEDS: LIDOCAINE 5% OINT 35.44 GM TUBE TOP SCH ×2 (08:22→12:50)
[2019-07-20] MEDS ORDERED: LINEZOLID 600 MG TABLET PO SCH (09:00)
[2019-07-20 11:44] VITALS: BP 140/47
[2019-07-20] MEDS: ACETAMINOPHEN 325 MG TABLET PO PRN (12:47)
[2019-07-20 14:05] VITALS: BP 148/61
--- NOTE | 2019-07-20 15:07 | NUR ---
Patient discharged back to [facility]. Reviewed d/c instructions with patient, patient verbalizes understanding. D/C IV. Patient picked up patient and transported via ambulance.
== END 2019-07-20 15:15 | DRG 291 ==
LOC: ER 22:12 → TELE 07-15 03:04 → TELE3 07-16 20:32
PROVIDERS: ADMIT Internal Medicine; ATTEND Internal Medicine
DX: I13.2 Hypertensive heart and chronic kidney disease with heart failure and with stage 5 chronic kidney disease, or end stage renal disease (principal); I50.33 Acute on chronic diastolic (congestive) heart failure; I69.351 Hemiplegia and hemiparesis following cerebral infarction affecting right dominant side; N18.5 Chronic kidney disease, stage 5; N39.0 Urinary tract infection, site not specified; N17.9 Acute kidney failure, unspecified; D46.9 Myelodysplastic syndrome, unspecified; I48.0 Paroxysmal atrial fibrillation; J44.9 Chronic obstructive pulmonary disease, unspecified; Z79.899 Other long term (current) drug therapy; R53.1 Weakness; E11.22 Type 2 diabetes mellitus with diabetic chronic kidney disease; L98.8 Other specified disorders of the skin and subcutaneous tissue; R26.9 Unspecified abnormalities of gait and mobility; R33.9 Retention of urine, unspecified; R00.1 Bradycardia, unspecified; Z79.4 Long term (current) use of insulin; B95.2 Enterococcus as the cause of diseases classified elsewhere; D63.1 Anemia in chronic kidney disease; W19.XXXA Unspecified fall, initial encounter; Y93.9 Activity, unspecified; Y92.129 Unspecified place in nursing home as the place of occurrence of the external cause; Z79.01 Long term (current) use of anticoagulants
CPT/HCPCS: 36415; 70030-TC; 70450; 71045; 72125; 76770; 83735; 84100; 85025; 85730; 87040; 87086; 93005; A4217; A4663; C1758; G0378; J1200; J1815; J1940; J7050; U0003-CS